=== PATIENT | female | born 1965 | race Caucasian/White ===

== ENCOUNTER 2016-11-15 11:45 | Outpatient (CLI) | payer MEDICAID | END 2016-11-15 11:59 | LOC: D.MAMMO 11:45 | DX: Z12.31 Encounter for screening mammogram for malignant neoplasm of breast (principal) ==

== ENCOUNTER → 2017-03-07 13:51 | Outpatient (CLI) | payer MEDICAID ==
[~2017-03-07 13:51] MED LIST: COREG 3.1253.125 MG PO; PERCOCET 5-3251 TAB PO; TORADOL10 MG PO
== END | disposition home or self-care (01) ==
LOC: D.MRI 13:51
DX: M25.511 Pain in right shoulder (principal)

== ENCOUNTER 2017-03-21 05:55 | Day surgery (SDC) | payer MEDICAID ==
[2017-03-20 10:16] LABS: HEMATOCRIT 45.6 % (36.0-48.0); HEMOGLOBIN 15.2 g/dL (12-16); MCH 29.7 pg (26.0-34.0); MCHC 33.3 g/dL (31.0-37.0); MCV 89.2 fL (80.0-100.0); MEAN PLATELET VOLUME 9.6 fL (7.4-10.4); RBC 5.11 10x6/uL (4.00-5.40); RDW 13.4 % (11.5-14.5); WBC 7.6 10x3/uL (4.8-10.8)
[~2017-03-21 05:55] MED LIST changes: -PERCOCET 5-3251 TAB PO; -TORADOL10 MG PO
[2017-03-21 08:31] VITALS: BP 135/85; BMI 46.6
[2017-03-21] MEDS ORDERED: PERCOCET 5-3251 TAB PO (13:08)
[2017-03-21] MEDS ORDERED: TORADOL10 MG PO (13:13)
--- NOTE | 2017-03-21 15:44 | OP ---
PATIENT NAME: BREANA MORALES MEDICAL RECORD: [id number] :63 LOCATION:[facility] ADMISSION DATE: SURGEON: AALIYAH WILLIS DO DATE OF OPERATION: 03/21/2017 PROCEDURE PERFORMED: Right shoulder arthroscopy with biceps tenodesis, subacromial decompression, distal clavicle excision. PREOPERATIVE DIAGNOSES: Right shoulder AC joint arthritis, possible SLAP tear, possible rotator cuff tear, subacromial impingement. POSTOPERATIVE DIAGNOSES: AC joint arthritis, SLAP tear type 2, subacromial impingement, no rotator cuff tear. INDICATIONS: Ms. Morales is a 51-year-old right-hand dominant female who presented to my office with an MRI demonstrating a rotator cuff tear on the MRI and possible SLAP tear as well as AC joint arthritis. Upon examination, she did have some weakness in her supraspinatus. Once this was seen with the MRI report and reviewing the MRI personally, appeared to have a rotator cuff tear. She was consented for the procedure in the office verbally. SURGEON: Aaliyah Willis DO BLOOD LOSS: Minimal. COMPLICATIONS: None. DESCRIPTION OF PROCEDURE: The patient was given a block in the preoperative area and taken to the operative suite and laid in the supine position, intubated, and given 900 mg clindamycin. She was then positioned into the left lateral decubitus position with the right arm up. A timeout was performed. Everyone was in agreement to the correct side, site, patient, and surgery. Once she was positioned and well padded, the beanbag was inflated to secure her, 2 straps were placed over her to secure her in place. Once this was done, the right upper extremity was prepped and draped in sterile fashion. A 60 cc of normal saline were then injected to the posterior portal into the shoulder joint itself. Once this was done, then posterior portal was made with an 11-blade scalpel and the trocar was entered into the shoulder joint itself. The camera was entered and the shoulder scope begin. We inspected the rotator cuff thoroughly and the supraspinatus and subscapularis and no tears were seen on the articular side. We then established the anterior portal with an 11-blade scalpel. The trocar was entered in the joint. Once this was done, the bicep tendon was lifted up and a type 2 SLAP tear was noted in the labrum and biceps tenotomy was performed at that time with a burner. Again, the shoulder was inspected on the joint side and no tears were seen lifting the cuff up. No loose bodies. Then, the attention was then taken to the subacromial space. Trocar was injected in the subacromial space and a lateral portal was established. Once this was done, the shaver was used to do a bursectomy and the cuff was thoroughly inspected and no tears were seen on the bursal side either. The humerus was rotated internally and externally and no tears were seen. Once this was performed, subacromial decompression then began with the burner removing soft tissue off the lateral acromion and at the AC joint itself. The bur was then entered from the lateral portal doing a subacromial decompression and OPERATIVE REPORT [id number] BREANA MORALES knocking the spur off the acromion and then the bur was entered into the anterior portal at the AC joint itself and the distal clavicle excision was done excising approximately 7 mm of distal clavicle. The joint was seen to be wide open after that. Then, the scope was withdrawn from the subacromial space and we converted to open, tended to subpec tenodesis. An incision was made in the axilla just below the pec insertion with a knife and then blunt dissection was made down to the humerus itself. Hohmann was used to retract the deltoid and the long head of the biceps tendon was found using a 90-degree forceps. It was taken out of the bicipital groove and then the Allis clamp was used to hold it. A whipstitch was then made over the tendon and drill was then used unicortically in the humerus. Prior to this, the sutures from the whipstitch were placed in the button. Then, the button was used to go into the hole that had been drilled and flipped unicortically and the bicep tendon was cinched down using the toggling method. Free needle was then used and 1 suture of that limb was used to suture over the biceps tendon stump that remained and the excess tendon was excised at that time with a Bovie and then the tendon was secured down to the bone with that suture, which was tied. Excess suture was then cut. The wound was thoroughly irrigated and closed on the skin with 2-0 inverted interrupted Vicryl stitches and then over the skin was ran a subq 4-0 Monocryl stitch. The 3 portal sites anterior, lateral, and posterior were all closed using inverted interrupted 4-0 Monocryl. Dermabond was placed over each of the sites and a Telfa and Tegaderm were placed over them. The patient was awakened and put in a sling and taken to recovery in stable condition. TRANSINT:[id number] Voice Confirmation ID: [id number] DOCUMENT ID: [id number] AALIYAH WILLIS DO at 1544 CC: [id number] DICTATION DATE: 03/21/17 1304 CAD SPECIALIST: 03/21/[address] [facility] [address] [place] [address]
== END 2017-03-21 15:40 | disposition home or self-care (01) ==
LOC: D.OPS 05:55 → D.PAN 08:30 → D.OPS 08:30
PROVIDERS: Orthopaedic Surgery
DX: M13.811 Other specified arthritis, right shoulder (principal); S43.431A Superior glenoid labrum lesion of right shoulder, initial encounter; M75.41 Impingement syndrome of right shoulder; Z01.812 Encounter for preprocedural laboratory examination

== ENCOUNTER → 2017-11-01 14:32 | Outpatient (CLI) | payer MEDICAID ==
[~2017-11-01 14:32] MED LIST changes: +PERCOCET 5-3251 TAB PO; +TORADOL10 MG PO
== END | disposition home or self-care (01) ==
LOC: D.MRI 14:32
DX: M43.17 Spondylolisthesis, lumbosacral region (principal)

== ENCOUNTER → 2017-12-13 08:45 | Outpatient (CLI) | payer MEDICAID | END | disposition home or self-care (01) | LOC: D.CT 08:45 | DX: R10.11 Right upper quadrant pain (principal) ==

== ENCOUNTER → 2018-01-16 08:33 | Outpatient (CLI) | payer MEDICAID ==
[~2018-01-16] VITALS: Ht 167.6 cm; Wt 132.9 kg
[2018-01-16 10:00] VITALS: Ht 167.6 cm; Wt 132.9 kg
== END | disposition home or self-care (01) ==
LOC: D.FANS 08:33
DX: Z68.42 Body mass index [BMI] 45.0-49.9, adult (principal)

== ENCOUNTER → 2018-02-16 13:59 | Outpatient (CLI) | payer MEDICAID ==
[2018-01-16 10:00] VITALS: BMI 47.3
== END | disposition home or self-care (01) ==
LOC: D.LABREF 13:59
DX: M17.12 Unilateral primary osteoarthritis, left knee (principal); Z11.8 Encounter for screening for other infectious and parasitic diseases

== ENCOUNTER 2018-03-13 05:25 | Day surgery (SDC) | payer MEDICAID ==
[2018-03-12 15:34] LABS: BASOPHILS 0.3 % (0-2); EOSINOPHILS 0.4 % (0-7); HEMOGLOBIN 15.3 g/dL (12-16); IMMATURE GRANULOCYTES 0.1 % (0-5); LYMPHOCYTES 10.9 % (15-50); MCH 29.3 pg (26.0-34.0); MCHC 33.3 g/dL (31.0-37.0); MCV 88.1 fL (80.0-100.0); MEAN PLATELET VOLUME 10.4 fL (7.4-10.4); MONOCYTES 1.5 % (2-11); NEUTROPHILS 86.8 % (40-80); PLATELET COUNT 256 10x3/uL (130-400); RBC 5.22 10x6/uL (4.00-5.40); RDW 14.5 % (11.5-14.5); WBC 7.4 10x3/uL (4.8-10.8)
[2018-03-12 15:39] LABS: APTT 28.8 SECONDS (22.8-39.4); INR 1.01 (0.85-1.17); PROTIME 12.9 SECONDS (11.6-15.0)
[2018-03-12 15:40] LABS: CALC OSMOLALITY 286 mosm/kg (275-300); CALCIUM 8.9 mg/dL (8.5-10.1); CARBON DIOXIDE 29.8 mmol/L (21.0-32.0); CHLORIDE - SERUM 103 mmol/L (98-107); CREATININE - SERUM 0.8 mg/dL (0.6-1.3); GLUCOSE 190 mg/dL (74-106); POTASSIUM - SERUM 4.1 mmol/L (3.5-5.1); SODIUM 141 mmol/L (136-145); UREA NITROGEN 14 mg/dL (7-18); eGFR NON AFRICAN AMERICAN 79 mL/min (90-120)
[~2018-03-13] VITALS: Ht 167.6 cm; Wt 68.9 kg
--- NOTE | ~2018-03-13 | OP ---
PATIENT NAME: BREANA MORALES MEDICAL RECORD: [id number] :63 LOCATION:[facility] ADMISSION DATE: SURGEON: ADEN CHA MD DATE OF OPERATION: 03/13/2018 PREOPERATIVE DIAGNOSIS: Varicose veins, left leg with other complications, morbid obesity. POSTOPERATIVE DIAGNOSES: Varicose veins, left leg with other complications, morbid obesity. OPERATION PERFORMED: Venefit radiofrequency ablation of the left greater saphenous vein. SURGEON: Aden Cha MD ANESTHESIA: General with LMA per LAY MIDWIFE and tumescent lidocaine, saline and bicarbonate solution. PREOPERATIVE NOTE: Ms. Morales is a 52-year-old morbidly obese white female who has venous reflux, particularly severe in the left lower extremity where she has had problems with severe edema as well as pain and throbbing discomfort. She has completed a trial of medical management, but continues to be symptomatic and wishes some more definitive therapy. Because of her obesity, I have chosen to bring her to the hospital to do her Venefit radiofrequency ablation as an outpatient. DESCRIPTION OF PROCEDURE: Under general anesthesia administered with an LMA per LAY MIDWIFE, the patient is in supine position and prepped and draped in a sterile manner. I applied nitroglycerin paste to the intact skin of the leg below the knee. Then, using ultrasound guidance and micropuncture technique, access to the greater saphenous vein at the mid-calf level and inserted a 7-Italian introducer. The Venefit catheter was threaded from there up to the mid-thigh level where the saphenous vein essentially disappears. I did not find a significant segment of greater saphenous vein proximal to that, although there are varicosities superficially which will need ablation later. I infiltrated the area to be treated with 500 cc of saline which contained 50 cc of 1% lidocaine with epinephrine and 5 cc of bicarbonate. The radiofrequency catheter was activated and 10 cycles were utilized to close the vein from mid-thigh to mid-calf. After removing the Venefit catheter, a single 4-0 Prolene suture was placed and over that a sterile dressing. The patient then placed in her compression knee high stocking with the thigh then wrapped with elastic bandage was awakened and taken to the recovery room. PLAN: The patient will be sent home today and instructed to rest with her legs elevated higher than her heart for at least a large portion of the day, but otherwise she is to get up and walk, and hopefully I have asked her to walk outdoors if weather permits. She will continue her home medications and diet. Tomorrow, she will be increasingly active, although she still will need to elevate her leg several times a day. I have given her a prescription for Oxford 5/325, 10 of these she can take one p.o. every 4 hours p.r.n. if needed for pain, but she is encouraged to use an ice pack on the treated area off and on and also to take ibuprofen 400 to 800 mg t.i.d. p.r.n. pain. She may remove the compression stocking and wrap tomorrow morning and shower and wash over the insertion site with soap and water, washing over the single stitch, then she is OPERATIVE REPORT [id number] BREANA MORALES to put her stocking back on. She will not need to wrap her thigh unless she does particularly wants to. An appointment will be settled for her or set up for her to come to see me in the office next week and have a followup ultrasound exam and also at that time I will probably performe ultrasound-guided foam sclerotherapy. Note, the patient also has a very severe yeast skin infection of the lower abdominal area of the panniculus and the groins and upper thighs, and for that I am prescribing Lotrimin cream to be used on these areas twice a day. Note, the patient's blood sugar this morning was 190, postop in the recovery room it was down to 123 without any specific treatment. Certainly, the patient is likely to have type 2 diabetes or at least to be quite severely prediabetic. I will ask her to follow up with Dr. Vogt for that. TRANSINT:[id number] Voice Confirmation ID: [id number] DOCUMENT ID: [id number] ADEN CHA MD CC: JALEN VOGT DO [id number] DICTATION DATE: 03/13/18 0936 ADMINISTRATIVE SERVICES OFFICER: 03/13/18 1052 [facility] 03/13/18 [place] [id number] [place] [id number]
[2018-03-13 06:22] VITALS: BP 133/71; Ht 167.6 cm; Wt 68.9 kg
[2018-03-20] MEDS ORDERED: COREG 3.1253.125 MG PO (07:30)
== END 2018-03-13 11:40 | disposition home or self-care (01) ==
LOC: D.OPS 05:25
PROVIDERS: Surgery
DX: I83.812 Varicose veins of left lower extremity with pain (principal); E66.01 Morbid (severe) obesity due to excess calories; Z01.812 Encounter for preprocedural laboratory examination

== ENCOUNTER 2018-03-27 05:55 | Outpatient (CLI) | payer MEDICAID ==
[2018-03-21 12:30] LABS: BASOPHILS 0.1 % (0-2); EOSINOPHILS 1.2 % (0-7); HEMOGLOBIN 15.1 g/dL (12-16); IMMATURE GRANULOCYTES 0.1 % (0-5); LYMPHOCYTES 25.1 % (15-50); MCH 29.7 pg (26.0-34.0); MCHC 34.3 g/dL (31.0-37.0); MCV 86.6 fL (80.0-100.0); MEAN PLATELET VOLUME 9.9 fL (7.4-10.4); MONOCYTES 8.5 % (2-11); PLATELET COUNT 285 10x3/uL (130-400); RBC 5.08 10x6/uL (4.00-5.40); RDW 14.5 % (11.5-14.5); WBC 8.5 10x3/uL (4.8-10.8)
[2018-03-21 12:35] LABS: APTT 28.5 SECONDS (22.8-39.4); CALC OSMOLALITY 286 mosm/kg (275-300); CALCIUM 9.3 mg/dL (8.5-10.1); CARBON DIOXIDE 28.8 mmol/L (21.0-32.0); CHLORIDE - SERUM 105 mmol/L (98-107); CREATININE - SERUM 0.7 mg/dL (0.6-1.3); GLUCOSE 98 mg/dL (74-106); INR 1.01 (0.85-1.17); POTASSIUM - SERUM 3.6 mmol/L (3.5-5.1); PROTIME 12.9 SECONDS (11.6-15.0); SODIUM 143 mmol/L (136-145); UREA NITROGEN 17 mg/dL (7-18); eGFR NON AFRICAN AMERICAN > 90 mL/min (90-120)
[2018-03-21 13:01] LABS: APPEARANCE CLEAR (CLEAR); BACTERIA MODERATE /hpf (NONE SEEN); BILIRUBIN NEGATIVE (NEGATIVE); COLOR YELLOW (YELLOW); EPITHELIAL CELLS RARE /hpf (0-5); GLUCOSE NEGATIVE (NEGATIVE); KETONE NEGATIVE (NEGATIVE); MUCUS <1+ /lpf (NONE SEEN); NITRITE NEGATIVE (NEGATIVE); PROTEIN NEGATIVE (NEGATIVE); UROBILINOGEN NORMAL (NORMAL); WHITE CELLS - URINE 0-5 /hpf (0-5)
[~2018-03-27] VITALS: Ht 167.6 cm; Wt 122.0 kg
[2018-03-27 06:49] VITALS: BP 139/62; Ht 167.6 cm; Wt 122.0 kg
== END 2018-03-27 08:16 | disposition home or self-care (01) ==
LOC: D.SDCHOLD 05:55 → D.OPS 05:55 → D.SDCHOLD 08:00 → D.OPS 08:16 → D.SDCHOLD 08:16 → EDSTATUS 10:00
PROVIDERS: Orthopaedic Surgery
DX: I83.892 Varicose veins of left lower extremity with other complications (principal); E66.01 Morbid (severe) obesity due to excess calories; Z01.812 Encounter for preprocedural laboratory examination; Z68.41 Body mass index [BMI] 40.0-44.9, adult

== ENCOUNTER 2018-05-08 13:00 | Inpatient (IN) | payer MEDICAID ==
[2018-05-07 09:12] LABS: BASOPHILS 0.4 % (0-2); EOSINOPHILS 4.6 % (0-7); HEMATOCRIT 43.8 % (36.0-48.0); HEMOGLOBIN 14.8 g/dL (12-16); IMMATURE GRANULOCYTES 0.1 % (0-5); LYMPHOCYTES 26.4 % (15-50); MCH 29.5 pg (26.0-34.0); MCHC 33.8 g/dL (31.0-37.0); MCV 87.4 fL (80.0-100.0); MEAN PLATELET VOLUME 9.5 fL (7.4-10.4); MONOCYTES 6.2 % (2-11); NEUTROPHILS 62.3 % (40-80); PLATELET COUNT 280 10x3/uL (130-400); RBC 5.01 10x6/uL (4.00-5.40); WBC 7.2 10x3/uL (4.8-10.8)
[2018-05-07 09:20] LABS: APPEARANCE HAZY (CLEAR); BACTERIA MODERATE /hpf (NONE SEEN); BILIRUBIN NEGATIVE (NEGATIVE); COLOR YELLOW (YELLOW); EPITHELIAL CELLS 25-50 /hpf (0-5); GLUCOSE NEGATIVE (NEGATIVE); KETONE NEGATIVE (NEGATIVE); NITRITE NEGATIVE (NEGATIVE); PROTEIN NEGATIVE (NEGATIVE); RED CELLS - URINE 0-5 /hpf (0-5); SPECIFIC GRAVITY 1.015 (1.005-1.020); UROBILINOGEN NORMAL (NORMAL)
[2018-05-07 09:21] LABS: CALC OSMOLALITY 280 mosm/kg (275-300); CALCIUM 9.1 mg/dL (8.5-10.1); CARBON DIOXIDE 31.9 mmol/L (21.0-32.0); CHLORIDE - SERUM 102 mmol/L (98-107); CREATININE - SERUM 0.6 mg/dL (0.6-1.3); GLUCOSE 100 mg/dL (74-106); INR 1.04 (0.85-1.17); POTASSIUM - SERUM 3.7 mmol/L (3.5-5.1); PROTIME 13.1 SECONDS (11.6-15.0); SODIUM 141 mmol/L (136-145); UREA NITROGEN 13 mg/dL (7-18); eGFR NON AFRICAN AMERICAN > 90 mL/min (90-120)
[2018-05-07 09:22] LABS: APTT 32.2 SECONDS (22.8-39.4)
[~2018-05-08] VITALS: Ht 167.6 cm; Wt 122.3 kg
[2018-05-08] VITALS (7 sets, daily range): BP systolic 92–138; BP diastolic 37–75; Ht 167.6 cm; Wt 122.3 kg
--- NOTE | ~2018-05-08 | MORECARE ---
CASE MANAGEMENT DISCHARGE SUMMARY PATIENT: BREANA SANCHEZ UNIT: [id number] ADM DATE: 05/08/18 AGE: 52 : 63 SEX: F ROOM/BED: D.2212 AUTHOR: TOMI MAURO PHYSICIAN: REFERRING PHYSICIAN: AALIYAH WILLIS DO DATE OF SERVICE: 05/09/18 Discharge Plan Patient Name: BREANA SANCHEZ Facility: [facility]:[place] : 1965 Planned Disposition: Home Anticipated Discharge Date: Discharge Date: Expected LOS: Initial Reviewer: [id number] Initial Review Date: 05/08/2018 Generated: 05/09/18 4:26 pm Comments DCP- Discharge Planning Updated by [email or web address]: Charlette Sheets on 05/09/18 2:[address] Patient Name: BREANA SANCHEZ Admission Status: Elective Accout number: [id number] Admission Date: 05-08-2018 : 1965 Admission Diagnosis: Attending: AALIYAH WILLIS Current LOS: 1 Anticipated DC Date: Planned Disposition: Home Primary Insurance: [place] [employer] Discharge Planning Comments: CM MET WITH PATIENT TO ASSESS DISCHARGE PLANNING NEEDS. PATIENT LIVES INDEPENDENTLY AT HOME WHERE SHE PLANS TO RETURN. SHE HAS ALL DME (CPM, ICE MACHINE, BEDSIDE COMMODE, AND A WALKER) HER OP PT APPOINTMENT AT [facility] FOR MondayApr @ 4:00PM. I CPOKW WITH FRANCES. THERE IS ONE STEP IN HER HOME AND SHE FEEL SAFE TO RETURN CM WILL CONTINUE TO FOLLOW AND ASSIST WITH DC PLANNING Mate Chief: Charlette Sheets DCPIA - Discharge Planning Initial Assessment Updated by [email or web address]: Charlette Sheets on 05/09/18 3:22 pm * Is the patient Alert and Oriented? Yes * How many steps to enter\exit or inside your home? * PCP SIN * Pharmacy [facility] [address] * Preadmission Environment Home with Family * ADLs Independent * Equipment Walker * Other Equipment CPM ICE MACHINE * List name and contact numbers for known caregivers / representatives who currently or will assist patient after discharge: BO () * Verbal permission to speak to the caregivers and representatives has been obtained from the patient. N/A * Community resources currently utilized None * Additional services required to return to the preadmission environment? Yes * Can the patient safely return to the preadmission environment? No * Has this patient been hospitalized within the prior 30 days at any hospital? Yes Patient Name: BREANA SANCHEZ Page [id number] at 1526 All edits/amendments must be made on the electronic document DICTATION DATE: 05/09/181525 RIGGING ENGINEER: TOI 05/09/181525 RPT#: [id number] DC DATE: STATUS: ADM IN [facility] [address] [place] [address] END OF REPORT
--- NOTE | ~2018-05-08 | MORECARE ---
CASE MANAGEMENT DISCHARGE SUMMARY PATIENT: BREANA SANCHEZ UNIT: [id number] ADM DATE: 05/08/18 AGE: 52 : 63 SEX: F ROOM/BED: D.2212 AUTHOR: TOMI MAURO PHYSICIAN: REFERRING PHYSICIAN: AALIYAH WILLIS DO DATE OF SERVICE: 05/11/18 Discharge Plan Patient Name: BREANA SANCHEZ Facility: [facility]:[place] : 1965 Planned Disposition: Home Anticipated Discharge Date: Discharge Date: Expected LOS: Initial Reviewer: [email or web address] Initial Review Date: 05/08/2018 Generated: 05/11/18 11:22 am Comments DCP- Discharge Planning Updated by [email or web address]: Charlette Sheets on 05/11/18 9:[address] Patient Name: BREANA SANCHEZ Encounter No: [id number] : 1965 Primary Insurance: [employer] JYOTSNA Anticipated DC Date: Planned Disposition: Home External Planned Provider: : DCP follow-up note: Patient and family in agreement with discharge plan. No changes to plan. Case management will follow and assist as needed. Charlette Sheets DCP- Discharge Planning Updated by [email or web address]: Charlette Sheets on 05/09/18 2:[address] Patient Name: BREANA SANCHEZ Admission Status: Elective Accout number: [id number] Admission Date: 05-08-2018 : 1965 Admission Diagnosis: Attending: AALIYAH WILLIS Current LOS: 1 Anticipated DC Date: Planned Disposition: Home Primary Insurance: [employer] Discharge Planning Comments: CM MET WITH PATIENT TO ASSESS DISCHARGE PLANNING NEEDS. PATIENT LIVES INDEPENDENTLY AT HOME WHERE SHE PLANS TO RETURN. SHE HAS ALL DME (CPM, ICE MACHINE, BEDSIDE COMMODE, AND A WALKER) HER OP PT APPOINTMENT AT [facility] FOR MondayApr @ 4:00PM. I CPOKW WITH FRANCES. THERE IS ONE STEP IN HER HOME AND SHE FEEL SAFE TO RETURN CM WILL CONTINUE TO FOLLOW AND ASSIST WITH DC PLANNING Manager Lan: Charlette Sheets DCPIA - Discharge Planning Initial Assessment Updated by [email or web address]: Charlette Sheets on 05/09/18 3:22 pm * Is the patient Alert and Oriented? Yes * How many steps to enter\exit or inside your home? * PCP SIN * Pharmacy [facility] [address] * Preadmission Environment Home with Family * ADLs Independent * Equipment Walker * Other Equipment CPM ICE MACHINE * List name and contact numbers for known caregivers / representatives who currently or will assist patient after discharge: BO () * Verbal permission to speak to the caregivers and representatives has been obtained from the patient. N/A * Community resources currently utilized None * Additional services required to return to the preadmission environment? Yes * Can the patient safely return to the preadmission environment? No * Has this patient been hospitalized within the prior 30 days at any hospital? Yes Last DP export: 05/09/18 2:26 Patient Name: BREANA SANCHEZ Page [id number] at 1022 All edits/amendments must be made on the electronic document DICTATION DATE: 05/11/18 1022 ENTEROSTOMAL NURSE: TOI 05/11/18 1022 RPT#: [id number] DC DATE: STATUS: ADM IN [facility] [address] [place] [address] END OF REPORT
--- NOTE | ~2018-05-08 | OP ---
PATIENT NAME: BREANA MORALES MEDICAL RECORD: [id number] :63 LOCATION:[id number] ADMISSION DATE:05/08/18 SURGEON: RONNELL WILLIS DO DATE OF OPERATION: 05/08/2018 PROCEDURE PERFORMED: Left total knee arthroplasty. PREOPERATIVE DIAGNOSIS: Severe end-stage knee osteoarthritis. POSTOPERATIVE DIAGNOSIS: Severe end-stage knee osteoarthritis. INDICATIONS: Ms. Morales is a 52-year-old female who has been treated in my office for over a year for knee pain. She had x-rays which demonstrated severe arthritis in the knee, mostly medial and under the patella, some lateral as well. We tried injections to no avail with this and she was fed up with the pain which started affecting her activities of daily living. She was informed of risks and benefits including an increased risk for infection due to her size, failure of implants, need for further surgery, blood clots, and ; and she signed the consent. SURGEON: Ronnell Willis DO ASSISTANTS: 1. Ian Rao, GUILLOTINE OPERATOR 2. Angelo Flowers, GUILLOTINE OPERATOR They performed the skin closure at the end under supervision. DESCRIPTION OF PROCEDURE: The patient received a block by anesthesia in the preoperative area, taken to the operative suite, laid in the supine position, and given gentamicin and Ancef preoperatively. A time-out was performed and everyone was in agreement with correct site, side, patient, and procedure. The left lower extremity was then prepped and draped in sterile fashion. Once she was prepped and draped, the incision was marked out on the anterior knee in the midline and Ioban was used to cover the knee. A #10 blade scalpel was used then through the skin down to the knee capsule itself. Anticoagulation was done that was needed throughout the procedure with an Aquamantys. The tourniquet was not used. A fresh #10 blade was then used and a medial parapatellar approach was used to the capsule and patella was everted. The fat pad was removed. There was a large osteophyte on the superior portion of the patella, which was removed. Then, patella was milled down to fit a 31 three-peg thin patella. The knee was then flexed up and the femur was entered. The femoral canal was entered. The distal femur guide was then put on and pinned into place and the distal femur was cut. The tibia was then exposed and cut 3 different times in order to fit the appropriate 10 block extension block in. The knee had been brought into extension and a lamina flat folder was used to keep the space between the tibia and the femur opened. An Army-Linton was used to retract the soft tissue and the menisci were removed on both sides. The Aquamantys was used to coagulate any bleeders of the medial and lateral genicular arteries as well as the posterior capsule. The knee was then flexed up. Once we had appropriate cut, 10 block fit well, medial release had been done due to the severe scarring down the MCL, and well balanced with a 10 block extension block in, the knee was then flexed up and the femur was measured to be 65. The 4-in-1 cutting block was then put on and the femur was cut. The osteophytes in the posterior knee were then removed. At that time, a 65 trial femur was then placed and tibial OPERATIVE REPORT [id number] BREANA MORALES tray with 10 poly was floated in and ranged. The rotation was then marked. This was removed with tibial poly and tray. The patella was drilled and then the lug holes were drilled through the trial femur. This was then removed and the tibia was exposed and measured to be 67. A 67 cruciate tibia was then drilled and punched, and the cement was mixed. Cement was put on the tibia down the canal and on the implant. It was impacted into place. Excess cement was removed and the femur was then put on. A 65 porous left femur was put on and then a 12 poly was put in between them and then brought into extension. The patella was put on and cement was put on either side, on the patella and on the implant. Patellar squeezer was used to squeeze down. Excess cement was removed. The knee was irrigated while the cement dried. Once the cement had dried, patellar squeezer was removed and the knee was ranged. The 12 poly fit very well in extension and flexion, had full range of motion. The trial poly was then removed and the 12 E-poly cruciate standard was put in and locked into place with a locking bar. The knee was then irrigated again. The bleeders were coagulated at that time with the Aquamantys. Surgicel beads were then placed in the gutters. Tobramycin and vancomycin powder was placed in the knee. Capsule was then closed with #2 Ethibond in a mhzlle-me-hsgus fashion. Above the capsule was irrigated and more of the Surgicel beads and tobramycin and vancomycin were placed on top of that. Then, the skin was closed with 2-0 Vicryl in an inverted interrupted fashion. A ZipLine was then placed on the knee. Adaptic, 4 x 4s, ABD, Webril, Vish wrap, and JALEN hose stocking were placed around the leg up to the knee. The patient was awakened and taken to recovery in stable condition. BLOOD LOSS: Approximately 200 mL. COMPLICATIONS: None. TRANSINT:[id number] Voice Confirmation ID: [id number] DOCUMENT ID: [id number] RONNELL WILLIS DO at 0720 CC: JALEN VOTG DO [id number] DICTATION DATE: 05/08/18 1557 HAND FLATWORK FINISHER: 05/08/[address] [facility] [address] [place] [address]
[2018-05-09 00:32] VITALS: BP 99/58
[2018-05-09 04:23] LABS: BASOPHILS 0 % (0-2); EOSINOPHILS 0 % (0-7); HEMATOCRIT 39.2 % (36.0-48.0); HEMOGLOBIN 13.1 g/dL (12-16); IMMATURE GRANULOCYTES 0.2 % (0-5); LYMPHOCYTES 8.8 % (15-50); MCH 29.2 pg (26.0-34.0); MCHC 33.4 g/dL (31.0-37.0); MCV 87.3 fL (80.0-100.0); MEAN PLATELET VOLUME 9.7 fL (7.4-10.4); MONOCYTES 5.6 % (2-11); NEUTROPHILS 85.4 % (40-80); PLATELET COUNT 277 10x3/uL (130-400); RBC 4.49 10x6/uL (4.00-5.40); RDW 13.7 % (11.5-14.5)
[2018-05-09 04:41] LABS: WBC 10.8 10x3/uL (4.8-10.8)
[2018-05-09 04:44] LABS: ALBUMIN 2.8 g/dL (3.4-5.0); ALKALINE PHOSPHATASE 105 U/L (46-116); ALT (SGPT) 13 U/L (10-68); BILIRUBIN - TOTAL 0.42 mg/dL (0.2-1.3); CALC OSMOLALITY 283 mosm/kg (275-300); CARBON DIOXIDE 28.2 mmol/L (21.0-32.0); CHLORIDE - SERUM 104 mmol/L (98-107); CREATININE - SERUM 0.7 mg/dL (0.6-1.3); GLUCOSE 133 mg/dL (74-106); POTASSIUM - SERUM 3.9 mmol/L (3.5-5.1); PROTEIN - SERUM 6.9 g/dL (6.4-8.2); SODIUM 141 mmol/L (136-145); UREA NITROGEN 16 mg/dL (7-18); eGFR NON AFRICAN AMERICAN > 90 mL/min (90-120)
[2018-05-09 05:30] VITALS: BP 104/50
[2018-05-09 07:57] LABS: APPEARANCE CLEAR (CLEAR); BILIRUBIN NEGATIVE (NEGATIVE); COLOR YELLOW (YELLOW); GLUCOSE NEGATIVE (NEGATIVE); KETONE SMALL mg/dL (NEGATIVE); NITRITE NEGATIVE (NEGATIVE); PROTEIN NEGATIVE (NEGATIVE); UROBILINOGEN NORMAL (NORMAL)
[2018-05-09 07:58] LABS: BACTERIA MODERATE /hpf (NONE SEEN); EPITHELIAL CELLS 0-5 /hpf (0-5); RED CELLS - URINE 0-5 /hpf (0-5)
[2018-05-09 09:38] VITALS: BP 116/52
[2018-05-09 13:03] VITALS: BP 110/55
[2018-05-09 17:15] VITALS: BP 112/50
[2018-05-09 20:00] VITALS: BP 105/48
[2018-05-10] VITALS: BP 114/58
[2018-05-10 05:04] VITALS: BP 121/53
[2018-05-10 05:33] LABS: BASOPHILS 0.4 % (0-2); EOSINOPHILS 1.3 % (0-7); HEMATOCRIT 36.3 % (36.0-48.0); IMMATURE GRANULOCYTES 0.1 % (0-5); MCHC 33.1 g/dL (31.0-37.0); MCV 87.7 fL (80.0-100.0); MEAN PLATELET VOLUME 9.8 fL (7.4-10.4); MONOCYTES 10.1 % (2-11); NEUTROPHILS 60.1 % (40-80); PLATELET COUNT 250 10x3/uL (130-400); RBC 4.14 10x6/uL (4.00-5.40); RDW 14.1 % (11.5-14.5); WBC 8.3 10x3/uL (4.8-10.8)
[2018-05-10 06:03] LABS: ALBUMIN 2.6 g/dL (3.4-5.0); ALKALINE PHOSPHATASE 92 U/L (46-116); BILIRUBIN - TOTAL 0.43 mg/dL (0.2-1.3); CALCIUM 7.5 mg/dL (8.5-10.1); CARBON DIOXIDE 29.6 mmol/L (21.0-32.0); CHLORIDE - SERUM 104 mmol/L (98-107); CREATININE - SERUM 0.7 mg/dL (0.6-1.3); GLUCOSE 95 mg/dL (74-106); PROTEIN - SERUM 6.3 g/dL (6.4-8.2); SODIUM 142 mmol/L (136-145); eGFR NON AFRICAN AMERICAN > 90 mL/min (90-120)
[2018-05-10 06:08] LABS: ALT (SGPT) 17 U/L (10-68); CALC OSMOLALITY 281 mosm/kg (275-300); POTASSIUM - SERUM 3.2 mmol/L (3.5-5.1); UREA NITROGEN 11 mg/dL (7-18)
[2018-05-10 09:12] VITALS: BP 122/59
[2018-05-10 12:58] VITALS: BP 117/51
[2018-05-10 15:17] VITALS: BP 116/55
[2018-05-10 19:00] VITALS: BP 118/48
[2018-05-11 00:58] VITALS: BP 107/56
[2018-05-11 05:44] VITALS: BP 117/49
[2018-05-11 06:22] LABS: BASOPHILS 0.3 % (0-2); EOSINOPHILS 2.6 % (0-7); HEMATOCRIT 36.5 % (36.0-48.0); HEMOGLOBIN 11.9 g/dL (12-16); IMMATURE GRANULOCYTES 0.1 % (0-5); LYMPHOCYTES 24.4 % (15-50); MCH 28.7 pg (26.0-34.0); MCHC 32.6 g/dL (31.0-37.0); MCV 88.2 fL (80.0-100.0); MEAN PLATELET VOLUME 9.6 fL (7.4-10.4); NEUTROPHILS 62.6 % (40-80); PLATELET COUNT 246 10x3/uL (130-400); RBC 4.14 10x6/uL (4.00-5.40); WBC 7.7 10x3/uL (4.8-10.8)
[2018-05-11 06:49] LABS: ALBUMIN 2.5 g/dL (3.4-5.0); ALKALINE PHOSPHATASE 87 U/L (46-116); CALC OSMOLALITY 278 mosm/kg (275-300); CALCIUM 8.3 mg/dL (8.5-10.1); CARBON DIOXIDE 31.5 mmol/L (21.0-32.0); CHLORIDE - SERUM 101 mmol/L (98-107); CREATININE - SERUM 0.6 mg/dL (0.6-1.3); GLUCOSE 89 mg/dL (74-106); POTASSIUM - SERUM 3.4 mmol/L (3.5-5.1); PROTEIN - SERUM 6.5 g/dL (6.4-8.2); SODIUM 141 mmol/L (136-145); UREA NITROGEN 9 mg/dL (7-18); eGFR NON AFRICAN AMERICAN > 90 mL/min (90-120)
[2018-05-11 06:52] LABS: ALT (SGPT) 12 U/L (10-68)
[2018-05-11 08:01] VITALS: BP 125/59
[2018-05-11] MEDS ORDERED: BAYER CHEWABLE81 MG PO (09:23)
[2018-05-11] MEDS ORDERED: OXYCODONE HCL5 M1 PO (09:25)
[2018-05-11] MEDS ORDERED: VISTARIL50 MG PO (09:25)
[2018-05-11] MEDS ORDERED: KEFLEX500 MG PO (09:26)
[2018-05-11] MEDS ORDERED: KLOR-CON M2020 MEQ PO (09:27)
== END 2018-05-11 14:02 | disposition home or self-care (01) | DRG 470 ==
LOC: D.SDCHOLD 13:00 → D.MS 13:02 → D.SDCHOLD 13:30 → D.MS 16:50
PROVIDERS: Family Medicine; Orthopaedic Surgery
PROC: 0SRD0JZ Replacement of Left Knee Joint with Synthetic Substitute, Open Approach (ICD-10-PCS; principal; 2018-05-08 13:00)
DX: M17.12 Unilateral primary osteoarthritis, left knee (principal); Z68.41 Body mass index [BMI] 40.0-44.9, adult; N39.0 Urinary tract infection, site not specified; D62 Acute posthemorrhagic anemia; I10 Essential (primary) hypertension; E66.01 Morbid (severe) obesity due to excess calories

== ENCOUNTER → 2018-07-05 14:20 | Outpatient (CLI) | payer MEDICAID ==
[2018-05-08 17:11] VITALS: BMI 43.5
[~2018-07-05 14:20] MED LIST changes: +BAYER CHEWABLE81 MG PO; +KEFLEX500 MG PO; +KLOR-CON M2020 MEQ PO; +OXYCODONE HCL5 M1 PO; +VISTARIL50 MG PO
== END | disposition home or self-care (01) ==
LOC: D.US 14:20
DX: R60.0 Localized edema (principal)

== ENCOUNTER 2018-08-20 14:00 | Outpatient (CLI) | payer MEDICAID ==
[2018-05-08 17:11] VITALS: BMI 43.5
== END 2018-08-20 14:30 | disposition home or self-care (01) ==
LOC: D.MAMMO 14:00
PROVIDERS: ATTEND Family Medicine
DX: Z12.31 Encounter for screening mammogram for malignant neoplasm of breast (principal)

== ENCOUNTER → 2019-02-08 09:16 | Outpatient (CLI) | payer MEDICAID ==
[2018-05-08 17:11] VITALS: BMI 43.5
--- NOTE | 2019-02-08 09:55 | NUR ---
TIMEOUT PERFORMED AT 0945 USING NAME AND . STUDY PERFORMED BY DR SAHU.
== END | disposition home or self-care (01) ==
LOC: D.RAD 09:16
PROVIDERS: ATTEND Orthopaedic Surgery
DX: M75.102 Unspecified rotator cuff tear or rupture of left shoulder, not specified as traumatic (principal)

== ENCOUNTER → 2019-03-07 09:51 | Outpatient (CLI) | payer MEDICAID ==
[2018-05-08 17:11] VITALS: BMI 43.5
--- NOTE | 2019-03-11 11:10 | ST ---
PATIENT:BREANA SANCHEZ MEDICAL RECORD: [id number] SEX: F LOCATION:[facility] ORDER #: ADMISSION DATE: 03/07/19 AGE OF PATIENT: 53 REFERRING PHYSICIAN: INTERPRETING PHYSICIAN: CAROLANN CORDOVA MD DATE OF SERVICE: 03/07/2019 PROCEDURE: Nuclear stress test. INDICATIONS: Angina, shortness of breath. She was exercised on standard Lexiscan protocol with 33 mCi sestamibi injected at peak stress, 10 mCi were used previously for rest images. FINDINGS: Gated SPECT reveals a preserved ejection fraction at 67%; however, there is decreased thickening and brightening throughout the apical area. SPECT imaging: Cardiolite was used as myocardial perfusion agent. There is a fixed perfusion defect anteroapically and apically compatible with previous anteroapical myocardial infarction. There is reversibility inferiorly. This includes the basal, mid, apical, inferior segments. The degree of reversibility is mild to moderate. The amount of myocardium involved between the defects is large. OVERALL IMPRESSION: This is an intermediate risk nuclear stress test suggestive of multivessel coronary artery disease with a fixed perfusion defect anteroapically as well as reversible ischemia inferiorly. TRANSINT:[id number] Voice Confirmation ID: [id number] DOCUMENT ID: [id number] CAROLANN CORDOVA MD at 1110 CC: JALEN VOGT DO [id number] DICTATION DATE: 03/08/19 1243 POLYMERIZATION SUPERVISOR: 03/09/19 0726 [facility] CLI 03/07/19 [facility] [address] [place] [id number]
== END | disposition home or self-care (01) ==
LOC: D.HCCARDIO 09:51
PROVIDERS: ATTEND Internal Medicine Interventional Cardiology
DX: I25.10 Atherosclerotic heart disease of native coronary artery without angina pectoris (principal)

== ENCOUNTER 2019-03-18 08:21 | Outpatient (CLI) | payer MEDICAID ==
[~2019-03-18] VITALS: Ht 167.6 cm; Wt 118.6 kg
--- NOTE | ~2019-03-18 | HEMODYNAMI ---
PATIENT:BREANA SANCHEZ MEDICAL RECORD: [id number] : 63 LOCATION:[facility] ADMISSION DATE: 03/18/19 Generatedon:03/18/201910:19 Patient name: BREANA SANCHEZ Patient #: [id number] SSN: [id number] : 1965 Date of study: 03/18/2019 Page: Of Hemodynamic Procedure Report Patient Data Patient Demographics Procedure consent was obtained First Name: BREANA Gender: Female Last Name: DANIEL : 1965 Middle Initial: DIONY Age: 53 year(s) Patient #: [id number] Race: SSN: [id number] Additional ID: [id number] Contact details Address: [address] [place] [address] State: [place] City: [facility] Zip code: [address] Admission Admission Data Admission Date: 03/18/2019 Admission Time: 8:21 Arrival Date: 03/18/2019 Arrival Time: 10:30 Admit Source: Other Insurance Payor: Private health insurance [facility] #: [id number] Height (in.): 66.14 BSA: 2.25 (m2) Height (cm.): 168 BMI: 42.16 (kg/m2) Weight (lbs.): 262.35 Weight (kg.): 119 Lab Results Lab Result Date: 03/18/2019 Lab Result Time: 0:00 Biochemistry Name Units Result Min Max BUN mg/dl 13 --(--*-)-- 7 18 Creatinine mg/dl 0.7 --(*---)-- 0.6 1.3 eGFR ml/min 90 --(*---)-- 90 120 NONAFRICAN CBC Name Units Result Min Max Hemoglobin g/dl 14.2 --(*---)-- 13.5 17.5 Procedure Procedure Types Cath Procedure Diagnostic Procedure LHC LHC w/Coronaries Sedation Charges Moderate Sedation up to 15 minutes Procedure Description Procedure Date Procedure Date: 03/18/2019 Procedure Start Time: 10:05 Procedure End Time: 10:11 Procedure Staff Name Function Thomas Spring MD Performing Physician Temitope Sanchez RT Monitor Yumi Santiago RT Scrub Gilda Grijalva RN Nurse Procedure Data Cath Procedure Fluoroscopy Diagnostic fluoroscopy Total fluoroscopy Time: 1.3 time: 1.3 min min Diagnostic fluoroscopy Total fluoroscopy dose: 310 dose: 310 mGy mGy Contrast Material Contrast Material Type Amount (ml) Isovue 300 27 Entry Location Entry Primary Successful Side Size Upsize Upsize Entry Closure Wang ccessful Closure Location (Fr) 1 (Fr) 2 (Fr) Remarks Device Remarks Radial Right 6 Fr Mechanical artery Short Compression Estimated blood loss: 5 ml Diagnostic catheters Device Type Used For End Catheter Placement DIAGNOSTIC Greenwood 110cm 5 Multi-vessel Fr catheter ([id number]) Angiography Procedure Complications No complications Procedure Medications Medication Administration Route Dosage 0.9% NaCl I.V. 100 ml/hr Oxygen NC 2 l/min Lidocaine 2% added to field 20 Heparin Flush Bag added to field 2 bags (1000units/500ml NS) Radial Cocktail added to field 1 syringe (Verapamil 2mg/Nitro 400mcg/Heparin 1500units) Versed I.V. 1 mg Fentanyl I.V. 50 mcg Versed I.V. 1 mg Hemodynamics Rest BSA: 2.25 (m2) HGB: 14.2 (g/dl) O2 Consumption: Estimated: 235.42 (ml/min) O2 Co nsumption indexed: Estimated:104.63 (ml/min/m) Heart Rate: 91 (bpm) Pressure Samples Time Site Value (mmHg) Purpose Heart Use Rate(bpm) 10:07 LV 81/17,29 Snapshot 119 Snapshots Pre Cath Intra NCS Post Cath Vital Signs Time Heart Resp SPO2 etCO2 NIBP Rhythm Pain Sedation Rate (ipm) (%) (mmHg) (mmHg) Status Level (bpm) 9:37:09 97 19 98 33.5 123/63(89) NSR 0 (11) 10(A) , No pain 9:41:25 99 16 96 35.7 131/58(90) NSR 0 (11) 10(A) , No pain 9:45:43 100 17 96 35.6 118/54(80) NSR 0 (11) 10(A) , No pain 9:49:57 100 19 96 35.7 119/58(82) NSR 0 (11) 10(A) , No pain 9:54:13 96 17 95 37.2 111/55(76) NSR 0 (11) 10(A) , No pain 9:58:25 97 16 95 38.7 109/51(80) NSR 0 (11) 10(A) , No pain 10:02:37 91 16 95 38.7 115/55(80) NSR 0 (11) 9(A) , No pain 10:06:49 99 19 97 39.4 121/61(85) NSR 0 (11) 9(A) , No pain 10:11:03 113 18 93 32.7 114/47(78) ST 0 (11) 10(A) , No pain 10:15:17 0 121/46(83) ST 0 (11) 10(A) , No pain 10:19:[address] 0 (11) 10(A) , No pain Medications Time Medication Route Dose Verified Delivered Reason Notes E ffectiveness by by 9:36:16 0.9% NaCl I.V. 100 Gilda Gilda used for ml/hr Rudi Rudi clinical auditor RN 9:36:24 Oxygen NC 2 l/min Gilda Gilda for low 02 Rudi Rudi sats RN RN 9:36:40 Lidocaine 2% added 20ml Thomas Gilda for local to vial Saw Martinelor anesthetic field RN 9:36:48 Heparin Flush added 2 bags Thomas Gilda used for Bag to Saw Martinelor procedure (1000units/500ml field RN NS) 9:42:51 Radial Cocktail added 1 Thomas Gilda used for (Verapamil to syringe Saw PLAZA Rudi procedure 2mg/Nitro field RN 400mcg/Heparin 1500units) 10:02:43 Versed I.V. 1 mg Thomas Gilda for Saw PLAZA Rudi sedation RN 10:02:51 Fentanyl I.V. 50 mcg Thomas Gilda for Saw PLAZA Rudi sedation RN 10:06:47 Versed I.V. 1 mg Thomas Gilda for Saw PLAZA Rudi sedation furnace mechanic helper Log Time Note 9:03:01 Informed consent obtained and on chart 9:03:18 Diagnostic Cath Status : Elective 9:10:34 Admit Source: Other 9:10:40 Arrival Date: 03/18/2019 10:30:00 AM 9:11:05 Insurance Payor : Private health insurance 9:11:15 Patient Height : 66.14 inches 9:11:21 Patient Weight : 262.35 lbs 9::52 Lab Result : eGFR NONAFRICAN 90 ml/min 9:: Lab Result : Hemoglobin 14.2 g/dl 9:: Lab Result : BUN 13 mg/dl 9:: Lab Result : Creatinine 0.7 mg/dl 9:22:01 1) 90+ Normal kidney functon but urine findings or structural abnormalities or genetic trait point to kidney disease. 9:22:05 Maximum allowable contrast dose (3.7 X eGFR X 0.75)250 ml. 9:23:45 ACC Patient presents with Stable Angina CCS Anginal Class 2--Slight limitation of ordinary activity. 9:24:04 ACCPatient has been prescribed/administered the following anti-anginal medication within the last 2 weeks: None 9:24:11 Procedure Status Elective Heart Cath (OP). 9:24:32 Gilda Grijalva RN sent for patient. Start room use. 9:24:33 Time tracking: Regular hours (M-F 7:00 - 5:00) 9:24:37 Plan of Care:Hemodynamics will remain stable., Cardiac rhythm will remain stable., Comfort level will be maintained., Respiratory function will remain adequate., Patient/ family verbilizes understanding of procedure., Procedure tolerated without complication., Recovers from procedure without complications.. 9:28:46 Risk of Mortality: <0.1 9:28:51 Risk of blood transfusion: 0.4 9:28:56 Risk of LISA: 0.1 9:36:04 Vital chart was started 9:36:16 0.9% NaCl 100 ml/hr I.V. was administered by Gilda Grijalva RN; used for procedure; Verbal order read back and verified. 9:36:24 Oxygen 2 l/min NC was administered by Gilda Grijalva RN; for low 02 sats; Verbal order read back and verified. 9:36:40 Lidocaine 2% 20ml vial added to field was administered by Gilda Grijalva RN; for local anesthetic; Verbal order read back and verified. 9:36:48 Heparin Flush Bag (1000units/500ml NS) 2 bags added to field was administered by Gilda Grijalva RN; used for procedure; Verbal order read back and verified. 9:41:47 Patient received from Pre/Post Procedure Room to CCL 2 Alert and oriented. Tansferred to table in Supine position. 9:41:49 Warm blankets applied, and arturo hugger turned on for patient comfort. 9:41:49 Correct patient and procedure confirmed by team. 9:41:50 Baseline sample Acquired. 9:41:50 ECG and BP/O2 sat monitors applied to patient. 9:42:00 Rhythm: sinus tachycardia 9:42:02 Full Disclosure recording started 9:42:10 H&P Date Dictated: 03/18/2019 Within 30 days and on chart., H&P Addendum completed by physician on day of procedure. (MUST COMPLETE FOR ALL OUTPATIENTS). 9:42:26 Pre-procedure instructions explained to patient. 9:42:26 Pre-op teaching completed and patient verbalized understanding. 9:42:28 Family in patients room. 9:42:29 Patient NPO since Midnight. 9:42:31 Is the patient allergic to Iodine/contrast media? No. 9:42:32 Was the patient premedicated? Yes 9:42:34 Is patient on blood thinner?No 9:42:35 Patient diabetic? No. 9:42:37 Previous problem with sedation/anesthesia? No ? 9:42:39 Snore? No 9:42:40 Sleep apnea? No 9:42:41 Deviated septum? No 9:42:42 Opens mouth fully? Yes 9:42:43 Sticks out tongue? Yes 9:42:47 Airway obstruction? No ? 9:42:50 Dentures? No ? 9:42:51 Radial Cocktail (Verapamil 2mg/Nitro 400mcg/Heparin 1500units) 1 syringe added to field was administered by Gilda Grijalva RN; used for procedure; Verbal order read back and verified. 9:42:53 Pre procedure: right dorsailis pedis pulse 1+ Palpable, but thready & weak; easily obliterated 9:42:55 Pre procedure: left dorsailis pedis pulse 1+ Palpable, but thready & weak; easily obliterated 9:42:58 Patient pain scale 0/10 ?. 9:43:05 IV patent on arrival in right antecubital with 0.9% NaCl at [facility]. 9:43:09 Lab results completed and on chart. 9:43:15 Right Radial & Right Groin area was prepped with chlora-prep and draped in sterile fashion 9:43:17 Alarms reviewed by RTarun N. 9:43:17 Sharps counted by scrub and verified by R.N. 9:59:14 Zero performed for pressure channel P1 9:59:53 Physician arrived 9:59:54 --------ALL STOP TIME OUT------ 9:59:54 Final Timeout: patient, procedure, and site verified with staff and physician. All members of the team are in agreement. 9:59:57 Right Radial & Right Groin site verified by team. 10:00:01 Fire Safety Assessment: A--An alcohol-based skin anteseptic being used preoperatively., C--Open oxygen or nitrous oxide is being used., D--An ESU, laser, or fiber-optic light is being used. 10:00:03 Physical assessment completed. ASA score P 2 - A patient with mild systemic disease as per Thomas Spring MD. 10:00:07 Sedation plan: IV Moderate Sedation Medication:Versed, Fentanyl 10:00:14 Use device set Radial Dx or PCI 10:00:15 ACIST Syringe (68850) opened to sterile field. 10:00:16 Medline Cath Pack ([id number]) opened to sterile field. 10:00:16 Bag Decanter (2002S) opened to sterile field. 10:00:17 ACIST Hand Control (83518) opened to sterile field. 10:00:17 ACIST Manifold (97770) opened to sterile field. 10:00:18 Tegaderm 4 x 4 (1626W) opened to sterile field. 10:00:19 MBrace Wrist Support ([id number]) opened to sterile field. 10:00:22 EMERALD Guide Wire (999-886) opened to sterile field. 10:00:23 SHEATH 6FR RAIN (1123172) opened to sterile field. 10:02:43 Versed 1 mg I.V. was administered by Gilda Grijalva RN; for sedation; Verbal order read back and verified. 10:02:51 Fentanyl 50 mcg I.V. was administered by Gilda Grijalva RN; for sedation; Verbal order read back and verified. 10:03:55 Procedure started. 10:05:21 Local anesthetic to right radial artery with Lidocaine 2% by Thomas Spring MD.INITIAL ACCESS ONLY 10:05:30 A 6 Fr Short sheath was inserted into the Right Radial artery 10:06:04 A DIAGNOSTIC Greenwood 110cm 5 Fr catheter (602565) was advanced over the wire and used for Multi-vessel Angiography. 10:06:47 Versed 1 mg I.V. was administered by Gilda Grijalva RN; for sedation; Verbal order read back and verified. 10:07:55 LV hemodynamics recorded. 10:07:56 LV gram done using MCCAULEY 10::59 Injector settings: Ml/sec: 5, Volume: 15, 10:08:05 EF : 65 % 10:08:19 RCA angiography performed. 10:08:22 Injector settings: Ml/sec: 3, Volume: 6, 10:08:34 LCA angiography performed. 10:08:42 Injector settings: Ml/sec: 3, Volume: 6, 10:08:43 ACCDominant side:Right 10:08:52 Catheter removed. 10:08:59 ZEPHYR REGULAR TR BAND (332440) opened to sterile field. 10:09:27 Sheath removed intact; hemostasis achieved with Mechanical Compression to the Right Radial artery. 10:09:29 Procedure ended.(Physican Out) 10:09:57 Fluoroscopy time 01.30 minutes. 10:10:01 Flurop Dose total: 310 10:10:01 Fluoroscopy dose: 310 mGy 10:10:09 Dose Area Product 73091 mGy/cm. 10:10:13 Contrast amount:Isovue 300 27ml. 10:10:20 Maximum allowable dose exceeded? No. 10:10:21 Sharps counted by scrub and verified by R.N. 10:10:23 [place] band inflated with 7cc of air. 10:10:25 Insertion/operative site no bleeding no hematoma. 10:10:29 Post right radial artery:stable 10:10:30 Post Procedure Pulses reassessed and unchanged 10:10:33 Post procedure rhythm: unchanged. 10:10:35 Estimated blood loss: 5 ml 10:10:38 Post procedure instruction explained to patient.Patient verbalizes understanding. 10:10:38 Patient needs reinforcement of post procedure teaching. 10:11:33 Procedure type changed to Cath procedure, Diagnostic procedure, LHC, LHC w/Coronaries, Sedation Charges, Moderate Sedation up to 15 minutes 10:11:34 Procedure and supply charges have been captured, reviewed, submitted and are correct. 10:11:39 Procedure Complication : No complications 10:11:46 [place] Findings: mild to moderate CAD (<70%) 10:11:48 Operative report dictated upon procedure completion. 10:11:48 See physician's report for complete and final results. 10:11:53 Report given to Pre/Post Procedure Room. 10:11:56 Patient transfered to Pre/Post Procedure Room with Stretcher. 10:11:59 Procedure ended. 10:11:59 Full Disclosure recording stopped 10:12:05 End room use (Document Last) 10:19:41 Vital chart was stopped Device Usage Item Name Manufacture Quantity Catalog Hospital Part Current Minima l Lot# / Number Charge Number Stock Stock Serial# Code ACIST Acist 1 93052 322843 483749 150096 20 Syringe Medical (45647) Systems Inc Medline Medline 1 [id number] 615015 12504 239341 5 Cath Pack ([id number]) Bag Microtek 1 2001S 114352 55061 526799 5 Decanter Medical Inc. () ACIST Hand Acist 1 55349 053580 049365 114494 5 Control Medical (53647) Systems Inc ACIST Acist 1 73067 654750 949575 300631 5 Manifold Medical (29291) Systems Inc Tegaderm 4 3M 1 1626W 117169 091119 355667 5 x 4 (1626W) MBrace Advanced 1 140-0250-00 351994 82710 944360 5 Wrist Vascular Support Dynamics ([id number]) EMERALD Cardinal 1 502-455 975876 998519 442065 5 Guide Wire Health (518-455) SHEATH 6FR Cardinal 1 2391819 213284 1549106 910757 5 [facility] (6193657) DIAGNOSTIC Terumo 1 40-5013 780449 465745 130116 5 Greenwood 110cm 5 Fr catheter (870907) ZEPHYR Cardinal 1 732437 140848 9013161 303834 5 REGULAR TR Health BAND (939978) Signature Audit [place] Stage Time Signature Unsigned Intra-Procedure 03/18/2019 Yumi Santiago 10:15:21 AM RT(R) Intra-Procedure 03/18/2019 Gilda 10:19:07 AM Rudi RN Intra-Procedure 03/18/2019 Thomas Spring 10:19:39 AM MD Signatures Performing Physician : Signature : Thomas Spring MD Date : Time : Monitor : Temitope Sanchez Signature : RT Date : Time : Nurse : Gilda Signature : Rudi RN Date : Time : [address] [place] [address]
[2019-03-18 08:54] VITALS: BP 132/60; Ht 167.6 cm; Wt 118.6 kg
[2019-03-18 08:54] LABS: BASOPHILS 0.4 % (0-2); EOSINOPHILS 3.7 % (0-7); HEMATOCRIT 43.6 % (36.0-48.0); HEMOGLOBIN 14.2 g/dL (12-16); IMMATURE GRANULOCYTES 0.2 % (0-5); LYMPHOCYTES 34.4 % (15-50); MCH 26.8 pg (26.0-34.0); MCHC 32.6 g/dL (31.0-37.0); MCV 82.4 fL (80.0-100.0); MEAN PLATELET VOLUME 9.1 fL (7.4-10.4); MONOCYTES 8.1 % (2-11); NEUTROPHILS 53.2 % (40-80); PLATELET COUNT 285 10x3/uL (130-400); RBC 5.29 10x6/uL (4.00-5.40); RDW 15.3 % (11.5-14.5); WBC 5.2 10x3/uL (4.8-10.8)
[2019-03-18 09:10] LABS: ALT (SGPT) 14 U/L (10-68); CALC OSMOLALITY 278 mosm/kg (275-300); CALCIUM 9.1 mg/dL (8.5-10.1); CHLORIDE - SERUM 104 mmol/L (98-107); CHOL - HDL RATIO 3.2 ratio (2.3-4.1); CHOLESTEROL, TOTAL 183 mg/dL (0-200); CREATININE - SERUM 0.7 mg/dL (0.6-1.3); GLUCOSE 96 mg/dL (74-106); HDL CHOLESTEROL 57 mg/dL (32-96); LDL CHOLESTEROL 113 mg/dL (0-100); POTASSIUM - SERUM 3.6 mmol/L (3.5-5.1); SODIUM 140 mmol/L (136-145); TRIGLYCERIDE 69 mg/dL (30-200); UREA NITROGEN 13 mg/dL (7-18); eGFR NON AFRICAN AMERICAN > 90 mL/min (90-120)
--- NOTE | 2019-03-18 10:47 | NUR ---
ASSISTED PT ONTO BEDPAN, PT VOIDED APPROX 400 CC CLEAR YELLOW URINE, PERICARE PROVIDED. PT IS ALERT, DENIES ANY C/O PAIN OR NAUSEA. Z BAND IS CDI, FINGERS WARM AND CAP REFILL IS BRISK. WRIST IMMOBILIZER IN PLACE. CALL LIGHT IN REACH.
--- NOTE | 2019-03-18 10:59 | NUR ---
SANDWICH AND PO FLUIDS SERVED. PT DENIES ANY C/O. Z BAND IS CDI, FINGERS WARM AND CAP REFILL IS BRISK. NSR, RATE 92, BP IS 114/51, CALL LIGHT IN REACH, NO FAMILY AT BEDSIDE.
--- NOTE | 2019-03-18 11:19 | NUR ---
PT ASHLEY 100% OF SANDWICH AND PO FLUIDS WITH NO NAUSEA. Z BAND IS CDI, FINGERS WARM AND CAP REFILL IS BRISK. VSS, PT DENIES NEEDS A THIS TIME.
--- NOTE | 2019-03-18 11:33 | NUR ---
3 CC OF AIR WEANED FROM Z BAND WITH NO BLEEDING NOTED. FINGERS WARM AND CAP REFILL IS BRISK. PT DENIES ANY N/V DEFICIT TO HAND. VSS.
--- NOTE | 2019-03-18 11:52 | NUR ---
3 CC OF AIR WEANED FROM Z BAND WITH NO BLEEDING NOTED. FINGERS WARM AND CAP REFILL IS BRISK. PT DENIES ANY NV DEFICIT TO HAND. NSR, RATE IS 82, BP IS 116/51
--- NOTE | 2019-03-18 11:59 | NUR ---
DC INSTRUCTIONS HAVE BEEN REVIEWED WITH PT WHO VERBALIZES UNDERSTANDING.
--- NOTE | 2019-03-18 12:14 | NUR ---
1208 Z BAND REMOVED AND 2X2, TEGADERM HAVE BEEN PLACED TO SITE. FINGERS WARM AND PULSES PALPABLE. PT DENIES ANY NV DEFICIT TO HAND. PT IS ALERT AND DENIES ANY C/O. IV HAS BEEN DC'D AND NURSE HAS ASSITED PT WITH DRESSING FOR DISCHARGE. AWAITING HER RIDE TO PICK HER UP.
--- NOTE | 2019-03-18 12:27 | NUR ---
DRESSING REMAINS CDI TO RIGHT WRIST, WRIST IMOBILIZER IN PLACE. PT IS ALERT AND DENIES ANY C/O. PT ESCORTED TO PRIVATE AUTO VIA WC BY NURSE WITH DRIVING HER HOME, PT HAS ALL PERSONAL BELONGINGS AND DC INSTRUCTIONS AT TIME OF DISCHARGE.
--- NOTE | 2019-03-26 11:40 | OP ---
PATIENT NAME: BREANA SANCHEZ MEDICAL RECORD: [id number] :63 LOCATION:D.CAT ADMISSION DATE: SURGEON: CAROLANN CORDOVA MD DATE OF OPERATION: 03/18/2019 PROCEDURES: 1. Left heart catheterization. 2. Selective coronary angiography. 3. Left ventriculogram. INDICATION: Chest pain, abnormal nuclear stress test. DESCRIPTION OF PROCEDURE: After informed consent was obtained and after a detailed description of the risks, benefits as well as alternative therapies, the patient elected to proceed with angiogram and heart catheterization. The right radial area was prepped and draped in normal sterile fashion. Right radial artery was cannulated via modified Seldinger technique with placement of 6-Yoruba sheath. All catheters exchanged through this sheath. FINDINGS: Left ventriculogram was performed in a standard 30-degree MCCAULEY view, reveals good cardiac wall motion throughout all segments. Overall ejection fraction estimated 60%. SELECTIVE CORONARY ANGIOGRAPHY: Left main, left anterior descending, left circumflex, right coronary artery are all smooth-walled vessels with no angiographic evidence of coronary artery disease. OVERALL IMPRESSION: 1. No angiographic evidence of coronary artery disease. 2. Normal left heart pressures. 3. Normal left ventricular systolic function. Chest pain is noncardiac in etiology. Stress test is false positive and no other cardiac workup is necessary. TRANSINT:[id number] Voice Confirmation ID: [id number] DOCUMENT ID: [id number] CAROLANN CORDOVA MD at 1140 CC: [id number] DICTATION DATE: 03/18/19 1014 VOCATIONAL REHABILITATION ADMINISTRATOR: 03/18/19 1227 DEP CLI 03/18/19 [place] [id number]
== END 2019-03-18 12:25 | disposition home or self-care (01) ==
LOC: D.CATH 08:21
PROVIDERS: ATTEND Internal Medicine Interventional Cardiology
DX: R94.30 Abnormal result of cardiovascular function study, unspecified (principal); I20.0 Unstable angina; R06.02 Shortness of breath

== ENCOUNTER → 2019-05-02 08:52 | Outpatient (CLI) | payer MEDICAID ==
[2019-03-18 08:54] VITALS: BMI 42.2
== END | disposition home or self-care (01) ==
LOC: D.CT 08:52
PROVIDERS: ATTEND Internal Medicine Pulmonary Disease
DX: R93.89 Abnormal findings on diagnostic imaging of other specified body structures (principal)

== ENCOUNTER → 2019-07-11 18:04 | Outpatient (CLI) | payer MEDICAID ==
[2019-03-18 08:54] VITALS: BMI 42.2
== END | disposition home or self-care (01) ==
LOC: D.LABREF 18:04
PROVIDERS: ATTEND Orthopaedic Surgery
DX: M17.11 Unilateral primary osteoarthritis, right knee (principal)

== ENCOUNTER 2019-07-17 08:16 | Inpatient (IN) | payer MEDICAID ==
[~2019-07-17] VITALS: Ht 167.6 cm; Wt 116.8 kg
[2019-08-02 09:23] LABS: CALC OSMOLALITY 281 mosm/kg (275-300); CALCIUM 9.2 mg/dL (8.5-10.1); CARBON DIOXIDE 30.5 mmol/L (21.0-32.0); CHLORIDE - SERUM 104 mmol/L (98-107); CREATININE - SERUM 0.7 mg/dL (0.6-1.3); GLUCOSE 94 mg/dL (74-106); POTASSIUM - SERUM 4.1 mmol/L (3.5-5.1); SODIUM 141 mmol/L (136-145); UREA NITROGEN 15 mg/dL (7-18); eGFR NON AFRICAN AMERICAN > 90 mL/min (90-120)
[2019-08-02 09:27] LABS: APTT 29.1 SECONDS (22.8-39.4); INR 1.02 (0.85-1.17); PROTIME 13.3 SECONDS (11.6-15.0)
[2019-08-02 09:28] LABS: HEMATOCRIT 46.6 % (36.0-48.0); HEMOGLOBIN 15.2 g/dL (12-16); LYMPHOCYTES 27.2 % (15-50); MCH 27.9 pg (26.0-34.0); MCHC 32.6 g/dL (31.0-37.0); MCV 85.5 fL (80.0-100.0); MEAN PLATELET VOLUME 9.2 fL (7.4-10.4); NEUTROPHILS 60.8 % (40-80); PLATELET COUNT 285 10x3/uL (130-400); RBC 5.45 10x6/uL (4.00-5.40); RDW 13.6 % (11.5-14.5); WBC 5.7 10x3/uL (4.8-10.8)
[2019-08-02 09:30] LABS: BILIRUBIN NEGATIVE (NEGATIVE); GLUCOSE NEGATIVE (NEGATIVE); KETONE NEGATIVE (NEGATIVE); NITRITE NEGATIVE (NEGATIVE); SPECIFIC GRAVITY 1.005 (1.005-1.020); UROBILINOGEN NORMAL (NORMAL)
[2019-08-06 08:49] VITALS: BP 139/61; BMI 43.2
--- NOTE | 2019-08-06 14:58 | NUR ---
HIBACLENS AND ALCOHOL USED TO CLEAN BEFORE CHLORAPREP. STERILE GOWNED AND GLOVED TO PREP WITH CHLORAPREP. THROUGH TRAFFIC KEPT TO A MINIMUM. STERILE GLOVES APPLIED TO ADMINISTER TOBRA AND VANC TO BACK FIELD.
[2019-08-06 17:15] VITALS: BP 126/76
--- NOTE | 2019-08-06 17:22 | NUR ---
RECEIVED TO ROOM 1211 VIA BED FROM PACU. A/O X3. NO C/O AT THIS TIME. SKIN IS INTACT WITHOUT REDNESS EXCEPT INCISION TO RIGHT KNEE WHICH HAS A DRY INTACT DRESSING IN PLACE. DENIES NEEDS.
[2019-08-06 17:24] VITALS: BP 126/76; Ht 167.6 cm; Wt 116.8 kg
[2019-08-06 17:50] VITALS: BP 118/76
--- NOTE | 2019-08-06 17:56 | MORECARE ---
CASE MANAGEMENT DISCHARGE SUMMARY PATIENT: BREANA SANCHEZ UNIT: [id number] ADM DATE: 08/06/19 AGE: 53 : 63 SEX: F ROOM/BED: D.1211 AUTHOR: TOMI MAURO PHYSICIAN: REFERRING PHYSICIAN: AALIYAH WILLIS DO DATE OF SERVICE: 08/06/19 Discharge Plan Patient Name: BREANA SANCHEZ Facility: [facility]:[place] : 1965 Planned Disposition: Anticipated Discharge Date: Discharge Date: Expected LOS: Initial Reviewer: [email or web address] Initial Review Date: 08/06/2019 Generated: 08/06/19 6:56 pm Patient Name: BREANA SANCHEZ Page [id number] at 1756 All edits/amendments must be made on the electronic document DICTATION DATE: 08/06/191755 MANAGER SOURCING: TOI 08/06/191755 RPT#: [id number] DC DATE: STATUS: ADM IN [facility] [address] [place] [address] END OF REPORT
--- NOTE | 2019-08-06 18:03 | NUR ---
SUPPER SERVED IN ROOM. PATIENT ABLE TO FEED SELF WITH SET UP.
--- NOTE | 2019-08-06 18:12 | MORECARE ---
CASE MANAGEMENT DISCHARGE SUMMARY PATIENT: BREANA MORALES UNIT: [id number] ADM DATE: 08/06/19 AGE: 53 : 63 SEX: F ROOM/BED: D.1211 AUTHOR: TOMI MAURO PHYSICIAN: REFERRING PHYSICIAN: AALIYAH WILLIS DO DATE OF SERVICE: 08/06/19 Discharge Plan Patient Name: BREANA MORALES Facility: [facility]:[place] : 1965 Planned Disposition: Anticipated Discharge Date: Discharge Date: Expected LOS: Initial Reviewer: [email or web address] Initial Review Date: 08/06/2019 Generated: 08/06/19 7:11 pm DCP- Discharge Planning Updated by [email or web address]: Rina Vargas on 08/06/19 5:[address] CM met with patient to discuss initial discharge planning. Patient is in agreement to proceed with the assessment. Patient reports that she lives at home independently with her spouse Skip, daughter and son-in-law. Patient is alert/oriented. Stairs/steps: 1. PCP: Dr. Ray. Pharmacy: [facility]. Patient states she has been able to obtain all of her prescribed medications. HHS: No. DME: Walker, CPM, BSC, DVT leggings. Patient gives permission to speak with family members/care givers. Emergency contact: Skip Morales [phone]. Patient is Independent with all ADL's, medication management PATIENT EDUCATOR. CM discussed the availability of HH, Rehab, DME services. Patient states she will use OP [place] with [facility] upon DC. MIRNA signed. Patient feels safe returning to previous environment. Patient denies being hospitalized within the past 30 days. Patient denies the use of community resources PATIENT EDUCATOR. Transportation at time of discharge: Skip Morales (spouse). CM will follow and assist with DC needs/plans PRN. DCPIA - Discharge Planning Initial Assessment Updated by [email or web address]: Rina Vargas on 08/06/19 6:06 pm * Is the patient Alert and Oriented? Yes * How many steps to enter\exit or inside your home? * PCP Dr. Ray * Pharmacy [facility] * Preadmission Environment Home with Family * ADLs Independent * Equipment Bedside Commode Rolling Walker * Other Equipment CPM, DVT leggings * List name and contact numbers for known caregivers / representatives who currently or will assist patient after discharge: Skip Morales (spouse) [phone] * Verbal permission to speak to the caregivers and representatives has been obtained from the patient. Yes * Community resources currently utilized None * Please name any agencies selected above. [facility] [place] * Additional services required to return to the preadmission environment? Yes * Can the patient safely return to the preadmission environment? No * Has this patient been hospitalized within the prior 30 days at any hospital? No Coverage Notice Reviewer: [email or web address] Les Vargas Notice Issued Date-Time: 08/06/2019 17:57 Notice Type: Patient Choice Letter Notice Delivered To: Patient Relationship to Patient: Self Cosmetic Assembler Name: Breana Morales Delivery Method: HAND - Hand Delivered Kaitlin Days: Prior Verbal Notification: Recipient Understood Notice: Yes Recipient Signature: Yes Med Rec Note Co-signed by Attending: Coverage Notice Comment: Patient Choice for [facility] delivered to and signed by patient. Original given to patient and one placed on the chart. Last DP export: 08/06/19 4:56 p Patient Name: BREANA MORALES Page [id number] at 1812 All edits/amendments must be made on the electronic document DICTATION DATE: 08/06/191810 MATRIX BATH OPERATOR: TOI 08/06/191810 RPT#: [id number] DC DATE: STATUS: ADM IN [facility] [address] [place] [address] END OF REPORT
--- NOTE | 2019-08-06 19:02 | NUR ---
SPM PLACED AT 1825. ATE MOST OF SUPPER. DENIES NEEDS. NO CHANGES NOTED.
--- NOTE | 2019-08-06 19:26 | NUR ---
PATIENT RESTING IN BED WITH NO S/S OF DISTRESS. PATIENT DENIES NEEDS AT THIS TIME. BED IN LOWEST POSITION AND CALL LIGHT WITHIN REACH. ENCOURAGED THE PATIENT TO CALL IF SHE HAS NEEDS. WILL CONTINUE TO MONITOR.
[2019-08-06 20:17] VITALS: BP 114/72
[2019-08-06 23:55] VITALS: BP 117/57
[2019-08-07 04:30] VITALS: BP 105/51
--- NOTE | 2019-08-07 05:50 | NUR ---
PLACED PATIENT ON CPM TO RIGHT KNEE
[2019-08-07 06:26] LABS: HEMATOCRIT 37.6 % (36.0-48.0); HEMOGLOBIN 12.3 g/dL (12-16); MCHC 32.7 g/dL (31.0-37.0); MCV 85.5 fL (80.0-100.0); MEAN PLATELET VOLUME 9.4 fL (7.4-10.4); RBC 4.4 10x6/uL (4.00-5.40); RDW 13.9 % (11.5-14.5); WBC 9.1 10x3/uL (4.8-10.8)
[2019-08-07 07:00] VITALS: BP 122/68
--- NOTE | 2019-08-07 08:15 | OP ---
PATIENT NAME: BREANA MORALES MEDICAL RECORD: [id number] :63 LOCATION:D. D.1211 ADMISSION DATE:08/06/19 SURGEON: RONNELL WILLIS DO DATE OF OPERATION: 08/06/2019 PROCEDURE PERFORMED: Right total knee arthroplasty. PREOPERATIVE DIAGNOSIS: Right knee osteoarthritis. POSTOPERATIVE DIAGNOSIS: Right knee osteoarthritis. INDICATIONS: Ms. Morales is a 53-year-old female who has had right knee pain and arthritis for quite some time. She has tried injections, all manner of nonoperative treatments to no avail. She has tired dealing with the pain as it is affecting her activities of daily living. She wanted something done surgically. She had the left knee replaced a few years ago and she has done well with that. She was aware of the risks including infection, bleeding, damage to nerves and vessels, need for further surgery, continued pain, loss of motion and blood clots, and even . She signed a consent. SURGEON: Ronnell Willis DO DESCRIPTION OF PROCEDURE: The patient did not receive a block by anesthesia. She was taken to the operative suite, laid in the supine position, given general anesthetic and LMA was placed. She was given 2 grams Ancef and 80 mg gentamicin preoperatively. The right lower extremity was then prepped and draped in sterile fashion. Timeout was performed, everyone was in agreement of the correct side, site, patient and procedure. We then began by marking on the incision, covered in Ioban. We then used a 10-blade scalpel to dissect down to the capsule. Medial parapatellar approach was then used. A fresh 10 blade scalpel. Part of the fat pad was removed. The patella osteophytes were removed. Patella was milled down to fit a prosthesis. I then entered the femur with a drill with the distal femur guide on and cut and distal femur and then proximal tibia ended up having to recut it. Did not cut enough. We then removed the menisci with the knee in extension using a lamina clinical research analyst to open up the joint and a pistol senior software quality analyst rongeur and a Bovie. I then recut the tibia to fit the #10 extension block and flex the knee and measured the femur to be 65. 4-in-1 cutting block was then used to cut the femur. We then put the trial on and put a #10 poly and make sure it fit well and drilled for the patella, drilled lug holes on the femur at that point. I then exposed the tibia and sized to be 67 reamed and punched, did not put extra holes in the tibia for the cement. Cement was mixed. His tibia was irrigated during this and the cement was then put in the tibial implant back in to place. Excess cement was removed. The femur was impacted on, 10 poly put in between them. The knee was brought to extension and the patella was put in place as well after cleaning out the holes and cement put in the holes and on the patella and squeezed into place and held until the cement dried. While the cement was drying, the 10% povidine iodine solution was put in the knee along with 500 mL normal saline and we irrigated that out with more than a liter of normal saline after sit in there for 3 minutes, then a size 10 poly fit well. We put a 10 E poly in and locked it into place. I then did a lateral release and the patella was tilted laterally and closed the capsule with #2 Ethibond in [id number] fashion. I was assisted by Angelo Flowers, certified surgical pest controller assistant, and then the skin with 2-0 Vicryl in inverted interrupted fashion. A ZipLine then placed on the knee. Adaptic, 4 x 4s, ABD, Webril, Vish wrap and JALEN hose stocking were then OPERATIVE REPORT [id number] BREANA MORALES placed up to the knee. The patient was then awakened and taken to recovery in stable condition. Blood loss approximately 300 mL. She was awakened and taken to recovery in stable condition. TRANSINT:[id number] Voice Confirmation ID: [id number] DOCUMENT ID: [id number] RONNELL WILLIS DO at 0815 CC: [id number] DICTATION DATE: 08/06/19 1616 GOLF SALES MANAGER: 08/06/19 2317 ADM IN [place] [id number] [place] [address]
--- NOTE | 2019-08-07 08:48 | NUR ---
0800 ASSIST X 2 UP ON BEDPAN VOIDED WITHOUT DIFFICULTY PLACD BACK ON R CPM
--- NOTE | 2019-08-07 10:54 | NUR ---
2820 REMOVED CPM MACHINE PHYSICAL THERAPIST PRESENT TO AMBULATE PATIENT
--- NOTE | 2019-08-07 10:55 | NUR ---
0932 UP IN RECLINER CHAIR ASHLEY GUAJARDO
[2019-08-07 15:00] VITALS: BP 109/54
--- NOTE | 2019-08-07 17:49 | MORECARE ---
CASE MANAGEMENT DISCHARGE SUMMARY PATIENT: BREANA MORALES UNIT: [id number] ADM DATE: 08/06/19 AGE: 53 : 63 SEX: F ROOM/BED: D.1211 AUTHOR: TOMI MAURO PHYSICIAN: REFERRING PHYSICIAN: AALIYAH WILLIS DO DATE OF SERVICE: 08/07/19 Discharge Plan Patient Name: BREANA MORALES Facility: [facility]:[place] : 1965 Planned Disposition: Anticipated Discharge Date: Discharge Date: Expected LOS: Initial Reviewer: [email or web address] Initial Review Date: 08/06/2019 Generated: 08/07/19 6:48 pm Comments DCP- Discharge Planning Updated by [id number]: Rina Vargas on 08/07/19 4:[address] Plan: [facility] OP therapy appointment 08/11 @1130. Patient needs to be there for pre-registration @11:15. Appointment given to patient. DCP- Discharge Planning Updated by [email or web address]: Rina Vargas on 08/06/19 5:[address] CM met with patient to discuss initial discharge planning. Patient is in agreement to proceed with the assessment. Patient reports that she lives at home independently with her spouse Skip, daughter and son-in-law. Patient is alert/oriented. Stairs/steps: 1. PCP: Dr. Ray. Pharmacy: [facility]. Patient states she has been able to obtain all of her prescribed medications. HHS: No. DME: Walker, CPM, BSC, DVT leggings. Patient gives permission to speak with family members/care givers. Emergency contact: Skip Morales [phone]. Patient is Independent with all ADL's, medication management COVER CUTTER. CM discussed the availability of HH, Rehab, DME services. Patient states she will use OP [place] with [facility] upon DC. MIRNA signed. Patient feels safe returning to previous environment. Patient denies being hospitalized within the past 30 days. Patient denies the use of community resources COVER CUTTER. Transportation at time of discharge: Skip Morales (spouse). CM will follow and assist with DC needs/plans PRN. DCPIA - Discharge Planning Initial Assessment Updated by [email or web address]: Rina Vargas on 08/06/19 6:06 pm * Is the patient Alert and Oriented? Yes * How many steps to enter\exit or inside your home? * PCP Dr. Ray * Pharmacy [facility] * Preadmission Environment Home with Family * ADLs Independent * Equipment Bedside Commode Rolling Walker * Other Equipment CPM, DVT leggings * List name and contact numbers for known caregivers / representatives who currently or will assist patient after discharge: Skip Morales (spouse) [phone] * Verbal permission to speak to the caregivers and representatives has been obtained from the patient. Yes * Community resources currently utilized None * Please name any agencies selected above. [facility] [place] * Additional services required to return to the preadmission environment? Yes * Can the patient safely return to the preadmission environment? No * Has this patient been hospitalized within the prior 30 days at any hospital? No Coverage Notice Reviewer: [id number] - Rina Vargas Notice Issued Date-Time: 08/06/2019 17:57 Notice Type: Patient Choice Letter Notice Delivered To: Patient Relationship to Patient: Self Perinatal Tech Name: Breana Morales Delivery Method: HAND - Hand Delivered Kaitlin Days: Prior Verbal Notification: Recipient Understood Notice: Yes Recipient Signature: Yes Med Rec Note Co-signed by Attending: Coverage Notice Comment: Patient Choice for [facility] [place] delivered to and signed by patient. Original given to patient and one placed on the chart. Last DP export: 08/06/19 5:12 p Patient Name: BREANA MORALES Page [phone] at 1749 All edits/amendments must be made on the electronic document DICTATION DATE: 08/07/191747 PILLING MACHINE OPERATOR: TOI 08/07/191747 RPT#: [id number] DC DATE: STATUS: ADM IN [facility] [address] [place] [address] END OF REPORT
--- NOTE | 2019-08-07 18:13 | NUR ---
1800 FAMILY MEMBERS ARRIVED TO TAKE PATIENT HOME WHEELCHAIR TO FRON DOOR WITHOUT COMPLICATIONS PT HAS HER DISCHARGE PAPERS
--- NOTE | 2019-08-07 19:20 | NUR ---
PLACED PATIENT ON CPM TO RIGHT KNEE
[2019-08-07 21:31] VITALS: BP 114/45
[2019-08-08 01:10] VITALS: BP 107/48
--- NOTE | 2019-08-08 04:30 | NUR ---
PLACED PATIENT ON CPM MACHINE TO RIGHT KNEE
[2019-08-08 04:34] VITALS: BP 113/50
[2019-08-08 06:24] LABS: BASOPHILS 0.1 % (0-2); EOSINOPHILS 0.9 % (0-7); HEMATOCRIT 35.8 % (36.0-48.0); HEMOGLOBIN 11.7 g/dL (12-16); IMMATURE GRANULOCYTES 0.1 % (0-5); LYMPHOCYTES 18.7 % (15-50); MCH 27.9 pg (26.0-34.0); MCHC 32.7 g/dL (31.0-37.0); MCV 85.2 fL (80.0-100.0); MEAN PLATELET VOLUME 9.2 fL (7.4-10.4); MONOCYTES 14.6 % (2-11); NEUTROPHILS 65.6 % (40-80); PLATELET COUNT 224 10x3/uL (130-400); RDW 14.3 % (11.5-14.5); WBC 7.6 10x3/uL (4.8-10.8)
[2019-08-08 06:38] LABS: CALC OSMOLALITY 277 mosm/kg (275-300); CALCIUM 8.2 mg/dL (8.5-10.1); CARBON DIOXIDE 27.5 mmol/L (21.0-32.0); CHLORIDE - SERUM 104 mmol/L (98-107); CREATININE - SERUM 0.6 mg/dL (0.6-1.3); GLUCOSE 107 mg/dL (74-106); POTASSIUM - SERUM 3.8 mmol/L (3.5-5.1); SODIUM 139 mmol/L (136-145); UREA NITROGEN 13 mg/dL (7-18); eGFR NON AFRICAN AMERICAN > 90 mL/min (90-120)
[2019-08-08 07:33] VITALS: BP 111/52
--- NOTE | 2019-08-08 09:17 | NUR ---
AWAKE AND ALERT. ORIENTED X3. CPM OFF AT THIS TIME.
--- NOTE | 2019-08-08 09:18 | NUR ---
ATE MOST OF BREAKFAST. FAMILY AT BEDSIDE. LUNGS ARE CLEAR BILATERALLY, NO COUGH NOTED. SKIN IS INTACT WITHOUT REDNESS EXCEPT INCISION TO LEFT KNEE WHICH HAS A DRY INTACT DRESSING IN PLACE. SL TO LEFT HAND IS PATENT WITHOUT REDNESS AT INSERTION SITE. ASSISTED WITH BED LEHMAN PER STAFF. VOIDED 75 CC CLEAR YELLOW URINE. SKIN CARE PER STAFF. REQUESTED AND GIVEN 10MG OXY IR WITH 50MG VISTIRIL PO FOR C/O LEFT KNEE PAIN LEVEL 8. WILL MONITOR.
[2019-08-08 12:24] VITALS: BP 110/62
[2019-08-08 16:14] VITALS: BP 120/52
--- NOTE | 2019-08-08 17:10 | NUR ---
ATE MOST OF SUPPER. PLACED ON CPM AT THIS TIME. DENIES NEEDS. NO CHANGES NOTED.
--- NOTE | 2019-08-08 19:30 | NUR ---
PT SITTING UP IN BED WITHOUT DISTRESS, AOX4. STATES SHE HAS TO USE BATHROOM. REMOVED CPM. ASSISTED PT TO EOB WITH MINIMAL ASSIST. PT USED WALKER TO AMBULATED TO BEDSIDE COMMODE. TOLERATED WELL. PT VOIDED AND ASSISTED BACK TO BED. CPM PLACED BACK ON RIGHT LEG. REQUESTED AND GIVEN OXY AND VISTARIL FOR PAIN 02/05. DENIES OTHER NEEDS. CL IN REACH, WILL CTM
--- NOTE | 2019-08-08 20:30 | NUR ---
CPM REMOVED AT THIS TIME. JALEN HOSE REMOVED. SCDS PLACE BILAT. DENIES OTHER NEEDS, WILL CTM
[2019-08-08 20:36] VITALS: BP 115/46
--- NOTE | 2019-08-08 22:39 | NUR ---
PROVIDED WATER. CHG BATH GIVEN. DENIES OTHER NEEDS. WILL CTM
[2019-08-09 00:49] VITALS: BP 111/42
--- NOTE | 2019-08-09 02:15 | NUR ---
ASSISTED PT UP TO BEDSIDE COMMODE WITH MINIMAL ASSIST AND BACK TO BED. STATES PAIN IS 9/10, OXY ORDERED. DENIES OTHER NEEDS. CL IN REACH, WILL CTM
--- NOTE | 2019-08-09 04:40 | NUR ---
STATES PAIN 11/05, GAVE OXY ORDERED. DENIES OTHER NEEDS, WILL CTM
[2019-08-09 04:55] VITALS: BP 120/51
--- NOTE | 2019-08-09 05:25 | NUR ---
CPM ON AT THIS TIME
[2019-08-09 06:27] LABS: BASOPHILS 0.3 % (0-2); EOSINOPHILS 3.3 % (0-7); HEMATOCRIT 34.1 % (36.0-48.0); HEMOGLOBIN 11.4 g/dL (12-16); IMMATURE GRANULOCYTES 0.1 % (0-5); LYMPHOCYTES 18.3 % (15-50); MCH 28.6 pg (26.0-34.0); MCHC 33.4 g/dL (31.0-37.0); MCV 85.5 fL (80.0-100.0); MEAN PLATELET VOLUME 9.2 fL (7.4-10.4); MONOCYTES 11.6 % (2-11); NEUTROPHILS 66.4 % (40-80); PLATELET COUNT 196 10x3/uL (130-400); RBC 3.99 10x6/uL (4.00-5.40); RDW 14.1 % (11.5-14.5); WBC 7.7 10x3/uL (4.8-10.8)
[2019-08-09 06:53] LABS: CALC OSMOLALITY 271 mosm/kg (275-300); CALCIUM 8.1 mg/dL (8.5-10.1); CARBON DIOXIDE 27.7 mmol/L (21.0-32.0); CHLORIDE - SERUM 102 mmol/L (98-107); CREATININE - SERUM 0.7 mg/dL (0.6-1.3); GLUCOSE 99 mg/dL (74-106); POTASSIUM - SERUM 3.5 mmol/L (3.5-5.1); SODIUM 136 mmol/L (136-145); UREA NITROGEN 12 mg/dL (7-18); eGFR NON AFRICAN AMERICAN > 90 mL/min (90-120)
[2019-08-09 07:17] VITALS: BP 109/55
[2019-08-09] MEDS ORDERED: KEFLEX500 MG PO (07:28)
[2019-08-09] MEDS ORDERED: ELIQUIS2.5 MG PO (07:29)
[2019-08-09] MEDS ORDERED: VISTARIL50 MG PO (07:29)
[2019-08-09] MEDS ORDERED: OXYCODONE HCL5 M1 PO (07:29)
--- NOTE | 2019-08-09 07:50 | NUR ---
PT RESTING IN BED. RESP EVEN AND UNLABORED. PT DENIES PAIN AT THIS TIME. SALINE LOC TO LEFT HAND, SITE WITHOUT REDNESS OR EDEMA. CPM IN PLACE TO RIGHT LOWER EXTREMITY. DRESSING C/D/I TO EXTREMITY. ABLE TO MOVE TOES, EXTREMITY WARM TO TOUCH. DENIES FURTHER NEEDS AT THIS TIME, CL WITHIN REACH. ENCOURAGED TO CALL WITH NEEDS. CONTINUE POC
--- NOTE | 2019-08-09 14:00 | NUR ---
PT DISCHARGE INSTRUCTIONS PROVIDED FOR DISCHARGE. DISCUSSED WOUND CARE WITH PT AND WHEN TO DO DRESSING CHANGES. TALKED WITH HER REGARDING MEDICATIONS AND PRESCRIPTIONS PROVIDED. PT DENIES FURTHER QUESTIONS AT THIS TIME. SALINE LOC DISCONTINUED FROM LEFT HAND, CATH INTACT. ATTEMPTED TO ASSIST PT WITH DRESSING AT THIS TIME. PT VOICES THAT SHE WILL WAIT FOR SPOUSE TO ARRIVE AND THEN DRESS.
--- NOTE | 2019-08-09 14:30 | NUR ---
ASSISTED PT WITH DRESSING FOR D/C. PT TAKEN OUT TO PRIVATE VEHICLE VIA W/C WITH PERSONAL BELONGINGS.
--- NOTE | 2019-08-11 18:03 | MORECARE ---
CASE MANAGEMENT DISCHARGE SUMMARY PATIENT: BREANA MORALES UNIT: [id number] ADM DATE: 08/06/19 AGE: 53 : 63 SEX: F ROOM/BED: D.1211 AUTHOR: TOMI MAURO PHYSICIAN: REFERRING PHYSICIAN: AALIYAH WILLIS DO DATE OF SERVICE: 08/11/19 Discharge Plan Patient Name: BREANA MORALES Facility: [facility]:[place] : 1965 Planned Disposition: Anticipated Discharge Date: Discharge Date: 08/09/2019 Expected LOS: Initial Reviewer: [email or web address] Initial Review Date: 08/06/2019 Generated: 08/11/19 7:03 pm Comments DCP- Discharge Planning Updated by [email or web address]: Rina Vargas on 08/07/19 4:[address] Plan: [facility] OP therapy appointment 08/11 @1130. Patient needs to be there for pre-registration @11:15. Appointment given to patient. DCP- Discharge Planning Updated by [email or web address]: Rina Vargas on 08/06/19 5:[address] CM met with patient to discuss initial discharge planning. Patient is in agreement to proceed with the assessment. Patient reports that she lives at home independently with her spouse Skip, daughter and son-in-law. Patient is alert/oriented. Stairs/steps: 1. PCP: Dr. Ray. Pharmacy: [facility]. Patient states she has been able to obtain all of her prescribed medications. HHS: No. DME: Walker, CPM, BSC, DVT leggings. Patient gives permission to speak with family members/care givers. Emergency contact: Skip Morales [phone]. Patient is Independent with all ADL's, medication management CORRECTIONAL COUNSELOR. CM discussed the availability of HH, Rehab, DME services. Patient states she will use OP [place] with [facility] upon DC. MIRNA signed. Patient feels safe returning to previous environment. Patient denies being hospitalized within the past 30 days. Patient denies the use of community resources CORRECTIONAL COUNSELOR. Transportation at time of discharge: Skip Morales (spouse). CM will follow and assist with DC needs/plans PRN. DCPIA - Discharge Planning Initial Assessment Updated by [email or web address]: Rina Vargas on 08/06/19 6:06 pm * Is the patient Alert and Oriented? Yes * How many steps to enter\exit or inside your home? * PCP Dr. Ray * Pharmacy [facility] * Preadmission Environment Home with Family * ADLs Independent * Equipment Bedside Commode Rolling Walker * Other Equipment CPM, DVT leggings * List name and contact numbers for known caregivers / representatives who currently or will assist patient after discharge: Skip Morales (spouse) [phone] * Verbal permission to speak to the caregivers and representatives has been obtained from the patient. Yes * Community resources currently utilized None * Please name any agencies selected above. [facility] [place] * Additional services required to return to the preadmission environment? Yes * Can the patient safely return to the preadmission environment? No * Has this patient been hospitalized within the prior 30 days at any hospital? No Coverage Notice Reviewer: [id number] - Rina Vargas Notice Issued Date-Time: 08/06/2019 17:57 Notice Type: Patient Choice Letter Notice Delivered To: Patient Relationship to Patient: Self Driver Lifter Of Sanitation Truck Name: Breana Morales Delivery Method: HAND - Hand Delivered Kaitlin Days: Prior Verbal Notification: Recipient Understood Notice: Yes Recipient Signature: Yes Med Rec Note Co-signed by Attending: Coverage Notice Comment: Patient Choice for [facility] [place] delivered to and signed by patient. Original given to patient and one placed on the chart. Last DP export: 08/07/19 4:49 p Patient Name: BREANA MORALES Page [id number] at 1803 All edits/amendments must be made on the electronic document DICTATION DATE: 08/11/191802 MUSICAL INSTRUMENT MECHANIC: TOI 08/11/191802 RPT#: [id number] DC DATE:08/09/19 STATUS: DIS IN [facility] [address] [place] [address] END OF REPORT
== END 2019-08-09 14:42 | disposition home or self-care (01) | DRG 470 ==
LOC: D.M3 08-06 08:30 → D.SDCHOLD 08-06 08:30 → D.M3 08-06 17:00
PROVIDERS: Family Medicine; ADMIT Orthopaedic Surgery; ATTEND Orthopaedic Surgery
PROC: 0SRC0J9 Replacement of Right Knee Joint with Synthetic Substitute, Cemented, Open Approach (ICD-10-PCS; principal; 2019-08-06 10:45)
DX: M17.11 Unilateral primary osteoarthritis, right knee (principal); I10 Essential (primary) hypertension; K21.9 Gastro-esophageal reflux disease without esophagitis

== ENCOUNTER → 2019-07-30 14:43 | Outpatient (CLI) | payer MEDICAID ==
[2019-03-18 08:54] VITALS: BMI 42.2
== END | disposition home or self-care (01) ==
LOC: D.LABREF 14:43
PROVIDERS: ATTEND Orthopaedic Surgery
DX: M17.11 Unilateral primary osteoarthritis, right knee (principal)

== ENCOUNTER 2019-10-09 11:59 | Day surgery (SDC) | payer MEDICAID ==
[~2019-10-09] VITALS: Ht 167.6 cm; Wt 120.5 kg
[~2019-10-09 11:59] MED LIST changes: +ELIQUIS2.5 MG PO
[2019-10-09 12:23] LABS: HEMATOCRIT 41.1 % (36.0-48.0); MCH 27.1 pg (26.0-34.0); MCHC 31.6 g/dL (31.0-37.0); MCV 85.6 fL (80.0-100.0); MEAN PLATELET VOLUME 8.8 fL (7.4-10.4); RBC 4.8 10x6/uL (4.00-5.40); WBC 5.6 10x3/uL (4.8-10.8)
[2019-10-09 13:02] VITALS: BP 129/57; Ht 167.6 cm; Wt 120.5 kg
[2019-10-09] MEDS ORDERED: PERCOCET 5-3251 TAB PO (17:28)
[2019-10-09] MEDS ORDERED: VISTARIL50 MG PO (17:29)
[2019-10-09] MEDS ORDERED: TORADOL10 MG PO (17:29)
--- NOTE | 2019-10-09 18:25 | NUR ---
PT STATES SHE IS "COMFORTABLE" AND READY TO GO TO WAKEUP BED
--- NOTE | 2019-10-09 19:00 | NUR ---
ADMITTED TO ROOM FROM RECOVERY, ALERT DROWSEY VITAL SIGNS STABLE O2 SAT 99% ON 2 L, O2 DCD, HARLEY WRAP DRESSING INTACT TO RIGHT KNEE, DENIES PAIN NO DRAINAGE NOTED, CALL LIGHT IN REACH
[2019-10-09 19:15] VITALS: BP 121/59
[2019-10-09 20:00] VITALS: BP 118/73
--- NOTE | 2019-10-09 21:45 | NUR ---
UP TO BATHROOM WITH MINIMAL ASSIST AND WALKER, VOIDED WITHOUT DIFFICULTY, BACK TO BED DENIES PAIN OR DIZZINESS, VITALS REMAIN STABLE, STATES READY TO GO HOME
[2019-10-09 22:00] VITALS: BP 130/70
--- NOTE | 2019-10-09 22:15 | NUR ---
IV DC'D, ASSISTED TO GET DRESSED, NOTIFIED TO WEB SERVICES PROFESSIONAL, DIDCHAGE PAPERS AND PERCRIP[TIONS GIVEN, DISCARGED VIA WC TO HOME WITH
--- NOTE | 2019-10-10 08:39 | OP ---
PATIENT NAME: BREANA MORALES MEDICAL RECORD: [id number] :63 LOCATION:[facility] ADMISSION DATE: SURGEON: RONNELL WILLIS DO DATE OF OPERATION: 10/09/2019 PROCEDURE PERFORMED: Right knee lysis of adhesions and manipulation under anesthesia. PREOPERATIVE DIAGNOSIS: Right knee arthrofibrosis. POSTOPERATIVE DIAGNOSIS: Right knee arthrofibrosis. INDICATIONS: Ms. Morales is a 53-year-old female who underwent right total knee approximately 8 weeks ago. She has been working on her motion and she could not flex past 70-75 degrees. She had extreme pain and could not get more motion. I told her she has extreme risk for continuing to fibrosis and that we need to lyse the adhesions in her knee and do a manipulation. She is okay with that as were the risks including infection, bleeding, damage to nerves or vessels, need for further surgery, fracture, blood clots, and even and that she would have to do physical therapy right after to keep the motion. We got in the OR. She signed the consent. SURGEON: Ronnell Willis DO DESCRIPTION OF PROCEDURE: The patient was taken to the operative suite, laid in supine position, general anesthetic, given 3 grams of Ancef. She was sedated and LMA was placed. The right lower extremity was then prepped and draped in sterile fashion. A timeout was performed and everyone was in agreement with the correct side, site, patient and procedure. We began by injecting the portal sites on the anterior knee with 0.25% Marcaine with epinephrine, approximately 2 mL in each site. Anterior and lateral in the mid lateral portal with an 11-blade scalpel. Trocar entered into the knee joint. I established the medial portal using 18-gauge spinal needle and 11-blade scalpel and trocar entered and the shaver was brought in. There was a large amount of scar tissue noted mostly in the anterior knee that had a cyclops lesion in the notch to the patellar tendon. This was divided and chewed out with shaver and a burner, and then once I was done, I did the gutters and cleaned them out as well. Clean them of all the scar tissue and then the suprapatellar pouch as well, switching portals going back and forth between the medial and lateral portal with shaver and the camera. Once I felt like I had sufficient lysis accomplished, I removed the scope and then did a manipulation. I flexed her to approximately 115-120 degrees and held it there for 30 seconds and then repeat the process twice after that 3 times total. Once she had adequate motion, the knee was cleaned off and Angelo Flowers, certified surgical nurse practitioner closed the portal sites with 2-0 Prolene in [id number]-rg-upvug fashion. She was dressed with Adaptic, 4 x 4s, ABD, Webril, Vish wrap, and JALEN hose stocking up to the knee. She then was awakened and taken to recovery in stable condition. BLOOD LOSS: Minimal. COMPLICATIONS: None. TRANSINT:[id number] Voice Confirmation ID: [id number] DOCUMENT ID: [id number] OPERATIVE REPORT [id number] BREANA MORALES,RONNELL Garcia DO at 0839 CC: [id number] DICTATION DATE: 10/09/19 1739 RCP: 10/09/192009 [facility] 10/09/19 [id number] [place] [address]
== END 2019-10-09 22:15 | disposition home or self-care (01) ==
LOC: D.PAN 11:59 → D.M3 18:28 → D.PAN 22:15
PROVIDERS: Anesthesiology; ATTEND Orthopaedic Surgery
DX: M24.661 Ankylosis, right knee (principal)